=== PATIENT | female | born 1985 | race Caucasian/White ===

== ENCOUNTER 2023-03-23 10:21 | Outpatient (CLI) | payer BC, SELFPAY ==
--- NOTE | ~2023-03-23 | XR_ITS ---
EXAMINATION: XR hysterosalpingogram DATE: 03/23/2023 12:23 INDICATION: Crying to conceive TECHNIQUE: Multiple fluoroscopic images were obtained during contrast infusion into the endometrial c anal of the uterus by the primary physician. Fluoroscopy exposure time was minutes. FINDINGS: The uterine cavity demonstrates normal morphology. The fallopian tubes are normal in caliber and pat ent bilaterally. There is normal spillage of contrast into the peritoneum on both sides. IMPRESSION: 1. Normal hysterosalpingogram. Reviewed, dictated and finalized at location A.
[2023-03-23 11:28] LABS: Beta HCG Quantitative < 2.39 mIU/ML
--- NOTE | 2023-03-23 12:19 | W.PM.PROC2 ---
Procedure Note - Detailed Date of Procedure 03/23/23 Pre-op Diagnosis INFERTILITY Post-op Diagnosis Same Procedure Performed Hysterosalpingogram Surgeon Isaiah Prabhakar MD Anesthesia None Indications unexplained infertility Findings normal hysterosalpingogram Description of Procedure the patient was placed on the fluoroscopy table. A speculum was placed in the vagina. Cervix was grasped with a tenaculum. The catheter was placed the uterine cavity and the bulb was inflated. The speculum was removed with the angiocath still placed in the intrauterine cavity. Dye was then removed. The catheter. Fluoroscopic images obtained this process. Patient experienced some moderate to severe discomfort. The balloon of the catheter was deflated and the catheter was removed while the images were being obtained. The procedure was terminated. Patient tolerated the procedure well. There were no complications. Estimated Blood Loss 0 Complications No immediate complications Condition Stable Disposition Other
== END 2023-03-23 10:22 | disposition home or self-care (01) ==
PROVIDERS: Visit Provider Obstetrics & Gynecology
DX: Z31.9 Encounter for procreative management, unspecified (principal); N97.9 Female infertility, unspecified
CPT/HCPCS: 36415; 74740; 84702; Q9966

== ENCOUNTER 2025-03-05 09:33 | Outpatient (CLI) | payer OTHER, SELFPAY ==
--- NOTE | 2025-03-05 09:57 | ECG_ITS ---
Test Date: 2025-03-05 10:08:42 Measurements Intervals [place] Rate: 84 P: 69 RI: 146 QRS: 46 QRSD: 85 T: 48 QT: 337 QTc: 400 Interpretive Statements SINUS RHYTHM BASELINE ARTIFACT- I, II, III, AVR, AVLA, VF, V1-V3 NORMAL ECG No previous ECG available for comparison Electronically Signed On 03-05-2025 10:10:44 CDT by David Tompkins D.O.
--- OUTSIDE RECORDS SUMMARY | 2025-03-05 10:05 | XMS_ITS | Clinical Summary ---
Author Organization [facility] Address [address] [place] [address] Care Team Providers Care Programs Manager Name Role Phone Jules Regalado MD Primary Care Provider [phone] Source Comments [facility],non-owned Affiliates and Associated Physician Practices is amultiple site organization consisting of ambulatory clinics and hospital sitesin [place], [place], [place] and [place]. This disclosure is being madepursuant to the Care Everywhere program and may not contain all information available regarding this patient. Last updated 18.[facility] [employer] Allergies No known active allergies Medications * Be aware that medications may not be up to date on this document. Alwaysverify current medications with the patient. Medication Sig Dispensed Refills Start Date End Date Status Norgestim-Eth Estrad Triphasic (ORTHO TRI-CYCLEN, 28, PO) Activ e Fexofenadine HCl (TIFFANIE PO) Active mometasone (NASONEX) 50 MCG/ACT nasal spray [place] 1 spray into each nostril 2 times daily Active ALBUTEROL SULFATE IN Acti ve ciprofloxacin 0.3% (CILOXAN) 0.3 % ophthalmic solutionIndications:Oth er mucopurulent conjunctivitis of left eye 1 drop every 2 hours while awake x 2 days, then 1 drop every 4 hours while awake x 5 days. 1 bottles 03/30/2018 Active Family History Medical History Relation Name Comments Negative Family History Father Negative Family History Mother Relation Name Status Comments Father Mother Social History Tobacco Use Types Packs/Day Years Used Date Smoking Tobacco: Never Smokeless Tobacco: Never Tobacco Cessation:Counseling Given: No Alcohol Use Standard Drinks/Week Comments No 0 (1 standard drink = 0.6 oz pur e alcohol) Sex and Gender Information Value Date Recorded Sex Assigned at Not on file Gender Identity Not on file Sexual Orientation Not on file Last Filed Vital Signs Vital Sign Reading Time Taken Comments Blood Pressure 120/70 03/30/2018 10:23 AM CDT Pulse 111 03/30/2018 10:23 AM CDT Temperature 36.9 C (98.4 F) 03/30/2018 10:23 AM CDT Respiratory Rate 16 03/30/2018 10:23 AM CDT Oxygen Saturation 98% 03/30/2018 10:23 AM CDT Inhaled Oxygen Concentration - - Weight 72.6 kg (160 lb) 03/30/2018 10:23 AM CDT Height 162.6 cm (5' 4 ) 03/30/2018 10:23 AM CDT Body Mass Index 27.46 03/30/2018 10:23 AM CDT Plan of Treatment Health Maintenance Due Date Last Done Comments PAP SMEAR 1987 HIV SCREENING 2002 HEPATITIS C SCREENING 03/22/2005 DTAP/TDAP/TD VACCINES (1 - Tdap) 2006 HEPATITIS B VACCINE (1 of 3 - 19+ 3-dose series) 2006 COVID-19 VACCINE (1 - 2023-2 5 season) 2024 DEPRESSION SCREENING 11/26/2024 INFLUENZA VACCINE (Season Ended) 2025 ZOSTER VACCINE (1 of 2) 2037 HIB VACCINE Aged Out No longer eligi ble based on patient's age to complete this topic HPV VACCINE Aged Out No longer eligi ble based on patient's age to complete this topic MENINGOCOCCAL (Group B) VACC INE SHARED DECISION-MAKING Aged Out No longer eligibl e based on patient's age to complete this topic MENINGOCOCCAL GROUPS A/C/Y/W VACCINE Aged Out No longer eligible b ased on patient's age to complete this topic PNEUMOCOCCAL VACCINE Aged Out No long er eligible based on patient's age to complete this topic Care Teams Programs Manager Relationship Specialty Start Date End Date Jules Regalado MD PCP - General Family Medicine 02/19/17
--- OUTSIDE RECORDS SUMMARY | 2025-03-05 10:05 | XMS_ITS | Clinical Summary ---
Author Organization [facility] Care Team Providers Care Hotel Reservationist Name Role Phone Unavailable Primary Care Provider Unavailabl e Social History Tobacco Use Types Packs/Day Years Used Date Smoking Tobacco: Never Assessed Comments Unknown Sex and Gender Information Value Date Recorded Sex Assigned at Not on file Legal Sex Female 1:54 PM CENTER MEDICAL DIRECTOR Gender Identity Not on file Sexual Orientation Not on file Plan of Treatment Health Maintenance Due Date Last Done Comments Hepatitis C Virus (HCV) Screening 1987 Hepatitis B Immunization (1 of 3 - 19+ 3-dose series) 2006 Pap Smear 2008 Cervical Cancer Screening (CCS) 2017 HPV/Cotest 2017 Influenza Immunization (#1) 07/27/202407/27, 07/28/2020, 08/27/2014 SARS-COV-2 Immunization ( season) 2024 03/09/2021, 02/14/2021 Respiratory Syncytial Virus (RSV) Immunization (Adult) (1 - 1-dose 75+ series) 2062 DTaP/Tdap/Td Immunization Discontinued 10/01/2014 TdaP Immunization Completed 10/01/2014 Meningococcal Immunization (ACWY) Aged Out No longer eligible based on patient's age to complete this topic Pneumococcal Immunization Combined Aged Out No longer eligible based on patient's age to complete this topic Rotavirus Immunization Aged Out No lo nger eligible based on patient's age to complete this topic
--- OUTSIDE RECORDS SUMMARY | 2025-03-05 10:05 | XMS_ITS | Clinical Summary ---
Author Organization [facility] at the [facility] Office Building Address [address] [place] [id number] Care Team Providers Care Firer Locomotive Name Role Phone Mandy Dooley MD Primary Care Pro vider Allergies Active Allergy Reactions Criticality Noted Date Comments Cat Dander Chest tightness,Other (See comments) Medium 08/31/2022 Pollen Extracts Rash,Other (See comments) Medium 08/31 Ragweed Pollen Chest tightness,Other (See comments) Medium 08/31/2022 Medications fexofenadine HCl (KRISTINE ALLERGY ORAL) 11/26/19 10 Active mometasone (NASONEX) 50 mcg/actuation nasal spray Administer 1 spray into affected nostril(s) 2 (two) times a day 11/26/19 10 Active letrozole (FEMARA) 2.5 mg tablet Active montelukast (Singulair) 10 mg tablet 1 tab(s) orally 30 minutes before allergy shots for 30 day(s) Active EPINEPHrine (Auvi-Q) 0.3 mg/0.3 mL auto-injection syringe as directed intramuscularly once for 30 day(s) Active metFORMIN XR (GLUCOPHAGE XR) 500 mg 24 hr tabletIndications :PCOS (polycystic ovarian syndrome) TAKE 2 TABLETS BY MOUTH EVERY MORNING BEFORE BREAKFAST AND TAKE 1 TABLET BEFORE DINNER 270 tablet 3 08/27/20 23 Active albuterol HFA (ProAir HFA) 90 mcg/actuation inhalerIndication s:Mild intermittent asthma without complication Inhale 2 puffs every 4 (four) hours as needed for wheezing or shortness of breath 8.5 g 1 01/29/20 24 Active doxycycline hyclate 100 mg capsule 10/15/20 24 Active hydrocortisone 2.5 % ointment APPLY TOPICALLY TO THE AFFECTED AREA OF FACE AND NECK TWICE DAILY FOR 2 WEEKS 10/15/20 24 Active ondansetron ODT (ZOFRAN-ODT) 4 mg disintegrating tablet DISSOLVE 1 TABLET ON THE TONGUE EVERY 6 HOURS 09/24/20 24 Active olopatadine (Pataday Twice Daily Relief) 0.1 % ophthalmic solution every 12 hours Activ e metroNIDAZOLE (METROGEL) 1 % gel APPLY TOPICALLY TO FACE DAILY 11/10/20 24 Active SEMAGLUTIDE SUBQ Inject 10 Units under the skin Active busPIRone (BUSPAR) 15 mg tabletIndications :SYLVIA (generalized anxiety disorder) Take 1 tablet (15 mg total) by mouth 3 (three) times a day 270 tablet 2 02/28/20 25 2025 Active busPIRone (BUSPAR) 15 mg tabletIndications :SYLVIA (generalized anxiety disorder) Take 1 tablet (15 mg total) by mouth 3 (three) times a day 270 tablet 01/16/20 25 2024 Disconti nued(Reo rder) Active Problems Problem Noted Date Diagnosed Date Mild intermittent asthma without complication Assessment & Plan (11/17/2024 9:32 AM COMMUNICABLE DISEASE SPECIALIST): controlled Continue albuterol as needed Assessment & Plan (01/29/2024 8:32 AM COMMUNICABLE DISEASE SPECIALIST): Stable Continue albuterol as needed Assessment & Plan (08/27/2023 10:12 AM CDT): Stable Continue albuterol as needed Environmental allergies 08/27/2023 Assessment & Plan (11/17/2024 9:32 AM COMMUNICABLE DISEASE SPECIALIST): Following with horse race starter Assessment & Plan (01/29/2024 8:32 AM COMMUNICABLE DISEASE SPECIALIST): Stable Following with horse race starter On kristine & nasonex Assessment & Plan (08/27/2023 10:18 AM CDT): Stable Following with horse race starter On kristine & nasonex Vaginal itching 07/07/2023 Assessment & Plan (07/07/2023 6:26 PM CDT): PO diflucan 150 mg once a week x 3 weeks Nystatin powder as prescribed Clean area clean, dry, avoid moisture accumulation Yeast culture PCOS (polycystic ovarian syndrome) 04/11/2021 Assessment & Plan (11/17/2024 9:45 AM COMMUNICABLE DISEASE SPECIALIST): Following with gynecology On wegovy Assessment & Plan (01/29/2024 8:39 AM COMMUNICABLE DISEASE SPECIALIST): Following with gynecology Continue metformin, adjust as needed to avoid diarrhea Assessment & Plan (08/27/2023 10:19 AM CDT): Following with gynecology On metformin, could decrease to 500mg twice a day if persistent side effects Assessment & Plan (04/11/2021 5:33 PM CDT): Following with gynecology, On clomid & metformin Annual physical exam 07/06/2020 Assessment & Plan (11/17/2024 9:44 AM COMMUNICABLE DISEASE SPECIALIST): Reviewed PMH & Phq reviewed Reviewed medications and supplements HCM: orders placed as needed Assessment & Plan (08/27/2023 10:02 AM CDT): Reviewed PMH & Phq reviewed Reviewed medications and supplements HCM: orders placed as needed Assessment & Plan (08/31/2022 4:31 PM CDT): Former smoker PAP: UTD, follows with gynecology at [facility] BP wnl Body mass index is 30.59 kg/m . Discussed diet and exercise Feels safe at home Discussed skin cancer prevention and screening Flu vaccine today, otherwise UTD Assessment & Plan (08/12/2021 10:53 AM CDT): Former smoker PAP: UTD, follows with gynecology at [facility] BP wnl PHQ Screening PHQ-2 Total Score (If total score is 3 or more points, staff should administer the PHQ-9): 0 Body mass index is 28.35 kg/m . Discussed diet and exercise Feels safe at home Discussed skin cancer prevention and screening Flu vaccine today, otherwise UTD Assessment & Plan (07/06/2020 4:01 PM CDT): Check labs prior to next visit SYLVIA (generalized anxiety disorder) Assessment & Plan (02/27/2025 11:45 AM CDT): GAD7: 16>8, improved Continue buspar 15mg three times a day Assessment & Plan (01/16/2025 9:33 AM COMMUNICABLE DISEASE SPECIALIST): GAD7: 16, uncontrolled Increase buspar to 15mg three times a day Assessment & Plan (11/17/2024 9:45 AM COMMUNICABLE DISEASE SPECIALIST): GAD7: 9, uncontrolled Increase buspar to 20mg twice a day Assessment & Plan (01/29/2024 8:30 AM COMMUNICABLE DISEASE SPECIALIST): Improved Continue buspar 15mg twice a day Assessment & Plan (08/27/2023 10:21 AM CDT): Uncontrolled Increase buspar to 15mg twice a day Continue regular exercise Assessment & Plan (12/06/2022 2:16 PM COMMUNICABLE DISEASE SPECIALIST): Uncontrolled with recent return to the office Reasonable accomodation paperwork filled out 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 Continue 10mg buspar twice a day Assessment & Plan (08/12/2021 10:55 AM CDT): Doing well on buspar 10mg twice a day Assessment & Plan (04/11/2021 5:32 PM CDT): GAD7:6 today, stable Continue buspar 10mg TWICE A DAY Paperwork filled out for work Assessment & Plan (08/04/2020 8:54 AM CDT): GAD7:5 today, improved from 17 previously Trial increasing buspar to 10mg BID, if not well tolerated let me know and we can try 7.5mg Assessment & Plan (07/06/2020 3:57 PM CDT): GAD7: 17 today Restart buspar Resolved Problems Problem Noted Date Diagnosed Date Resolved Date Acute cough 07/07/2023 08/27/2023 Assessment & Plan (07/07/2023 6:27 PM CDT): Ongoing VSS, NAD, speaking in full sentences, no use accessory abdominal muscles, lungs CTAB Hx of asthma, c/o chest tightness, ongoing cough x 1 month with acute improvement but recent worsening again Prednisone 40 mg once a day x 5 days Levofloxacin po 500 mg daily x 5 days Ordered chest x-ray given duration of symptoms Albuterol inhaler as needed for SOB, wheezing, chest tightness Tessalon pearls (still has Rx) cough suppressant as needed Mucinex otc as cough expectorant x 7 days Zyrtec or claritin otc for drainage x 7 days Nasal saline spray x 7 days Flonase nasal spray x 7 days ER for worsening symptoms or persistent symptoms Acute bacterial conjunctivitis of right eye 07/07/2023 08/27/2023 Assessment & Plan (07/07/2023 6:22 PM CDT): No visual impairment, EOM intact and non painful, R conjunctiva injected Contac lens wearer Recently completed ofloxacin Ciprofloxacin ophthalmic solution both eyes every 4 hours x 7 days Contagious until on antibiotic drops for 24 hours Wash hands frequently and avoid touching/rubbing eyes Discard eye makeup Discard contacts and open a new pair when eye(s) return to normal Cool compresses as needed for irritation If eye(s) are not improving or worsening, or if you develop vision changes or eye pain over the next 24-48 hours, go see an eye doctor IMMEDIATELY Class 1 obesity due to exces s calories without serious comorbidity with body mass index (BMI) of 31.0 to 31.9 in adult 07/07/2020 Assessment & Plan (08/03/2020 8:58 AM CDT): BMI Follow-up includes: nutrition counseling and exercise counseling. Assessment & Plan (07/07/2020 1:28 PM CDT): BMI Follow-up includes: nutrition counseling and exercise counseling. Encounters Date Type Department Care Team Description 02/27/2025 11:30 AM CDT Office Visit [facility] at [address] [phone] Mandy Dooley MD SYLVIA (generalized anxiety disorder) (Primary Dx) 01/16/2025 9:15 AM COMMUNICABLE DISEASE SPECIALIST Office Visit [facility] at [address] [phone] Mandy Dooley MD SYLVIA (generalized anxiety disorder) (Primary Dx) from Last 3 Months Immunizations Immunization Administration Dates Next Due Influenza, Quadrivalent, Spl it, Preservative Free, Intramuscular 08/27/2023,08/31/2022,08/12/2021,07/28 Influenza, Trivalent, Preser vative Free, Intramuscular 10/16/2024,08/27/2014 Pneumococcal Conjugate Pcv20 11/17/2024 Tdap 11/17/2024,10/01/2014 Surgical History Surgery Date Site/Laterality Comments SECTION APPENDECTOMY Medical History Medical History Date Comments Anxiety Shingles Asthma Migraines Family History Medical History Relation Name Comments COPD Father Lucien Bennettlbutt Cancer Father Lucien Hurlbutt Throat cancer Father Lucien Bennettlbutt Heart attack Maternal Grandfather Gunnar Casas COPD Maternal Grandmother Cristiana Clemons Arthritis Mother Rea Clemons Obesity Mother Rea Clemons Relation Name Status Comments Father Lucien Lockwoodbutt Alive Maternal Grandfather Gunnar Casas Maternal Grandmother Cristiana Clemons Mother Rea Clemons Alive Social History Tobacco Use Types Packs/Day Years Used Date Smoking Tobacco: Former Cigarettes Tobacco Cessation:Counseling Given: Not Answered Alcohol Use Standard Drinks/Week Comments Yes 2 (1 standard drink = 0.6 oz pur e alcohol) AUDIT-C Answer Date Recorded Q1: How often do you have a drink containing alc ohol? Monthly or less 11/17/2024 Average Number of Drinks Not on file 024 Frequency of Binge Drinking Not on file 10/27 PHQ-2 Answer Date Recorded PHQ-2 Total Score (If total score is 3 or more points, staff should administer the PHQ-9) 2 02/27/2025 PHQ-9 Answer Date Recorded PHQ-9 Total Score 5 02/27/2025 Comments No Sex and Gender Information Value Date Recorded Sex Assigned at Not on file Legal Sex Female 7:44 PM COMMUNICABLE DISEASE SPECIALIST Gender Identity Not on file Sexual Orientation Not on file Obstetrics History Para Term AB IAB SAB Ectopic Multiple Livin g Live Births 2 1 Date Outcome GA Total Labor Labor//3rd Weight Sex Type Anes PTL Olena A1 A5 Name Clin Para Last Filed Vital Signs Vital Sign Reading Time Taken Comments Blood Pressure 116/64 02/27/2025 11:35 AM CDT Pulse 80 02/27/2025 11:35 AM CDT Temperature 36.3 C (97.4 F) 02/27/2025 11:35 AM CDT Respiratory Rate 18 02/27/2025 11:35 AM CDT Oxygen Saturation 99% 02/27/2025 11:35 AM CDT Inhaled Oxygen Concentration - - Weight 63 kg (138 lb 14.4 oz) 02/27/2025 11:35 A M CDT Height 162.6 cm (5' 4 ) 02/27/2025 11:35 AM CDT Body Mass Index 23.84 02/27/2025 11:35 AM CDT Plan of Treatment Health Maintenance Due Date Last Done Comments Hepatitis C Screening 1987 Hepatitis B Screening 2005 Zoster Vaccine (1 of 2) 2006 Covid-19 Vaccine (3 - Pfizer risk series) 04/06/2021 03/09/2021, 02/14/2021 Regular Well Visit/Exam 18-64 11/17/2025 11/17/2024, 08/27/2023, 08/31/2022, Additional history exists Depression Screening 02/27/2026 02/27/2025, 02/27/2025, 11/17/2024, Additional history exists Cervical Cancer Screening 04/06/2026 04/06/2023 DTaP/Tdap/Td Vaccine (3 - Td or Tdap) 11/17/2034 11/17/2024, 10/01/2014 Influenza Vaccine Completed 10/16/2024, , 08/31/2022, Additional history exists Pneumococcal vaccine <65 Completed 11/17/2024 HPV Vaccines Aged Out No longer eligi ble based on patient's age to complete this topic Varicella Vaccines Discontinued Insurance [employer] Care Teams Firer Locomotive Relationship Specialty Start Date End Date Mandy Dooley MD PCP - General Family Medicine 07/02/20
--- OUTSIDE RECORDS SUMMARY | 2025-03-05 10:05 | XMS_ITS | Clinical Summary ---
Author Organization [facility] Address [address] [place] [id number] Care Team Providers Care Special Education Case Manager Name Role Phone Shaquille Regalado MD Primary Care Provider Unav ailable Social History Tobacco Use Types Packs/Day Years Used Date Smoking Tobacco: Never Assessed Comments Unknown Sex and Gender Information Value Date Recorded Sex Assigned at Not on file Legal Sex Female 8:24 PM CDT Gender Identity Not on file Sexual Orientation Not on file Plan of Treatment Health Maintenance Due Date Last Done Comments Cervical Cancer Screening Pa p Smear (Age 30 to 64) Every 3 Years 1987 Annual Physical 1990 Hepatitis C 2005 DTaP, Tdap and Td Vaccines ( 1 - Tdap) 2006 Hepatitis B Vaccines (1 of 3 - 19+ 3-dose series) 2006 Cervical Cancer Screening Pa p with HPV Testing (Age 30 to 64) Every 5 Years 2017 Cervical Cancer Screening with HPV 2017 COVID-19 Vaccine (2023-2 5 season) 2024 HPV Vaccines Aged Out No longer eligi ble based on patient's age to complete this topic Meningococcal B Vaccine Aged Out No l onger eligible based on patient's age to complete this topic Meningococcal Vaccine Aged Out No sherrie veronica eligible based on patient's age to complete this topic Pneumococcal Vaccine: Pediat rics (0 to 5 Years) and At-Risk Patients (6 to 64 Years) Aged Out No longer eligible b ased on patient's age to complete this topic RSV Immunizations Under 20 Months Aged Out No longer eligible based on patient's age to complete this topic Care Teams Special Education Case Manager Relationship Specialty Start Date End Date Shaquille Regalado MD PCP - General 01/07/17
--- OUTSIDE RECORDS SUMMARY | 2025-03-05 10:05 | XMS_ITS ---
Author Organization [facility] Address [address] [place] [address] Care Team Providers Care Doubler Helper Name Role Phone Mandy Dooley Primary Care Provider Mable Dick Unavailable [phone] Blayne Garcia [phone] REASON FOR VISIT SCIT - Traditional Schedule Allergy Immunotherapy Encounters Encounter Location Date Provider Diagnosis [facility] [address] [place] [address] 01/26/2025 Blayne Garcia Allergic rhinitis due to pollen J30.1 ; Other allergic rhinitis J30.89 ; Allergic rhinitis due to animal (cat) (dog) hair and dander J30.81 and Other chronic allergic conjunctivitis H10.45 Assessments Encounter Date Diagnosis (ICD Code) Assessment Notes Treatment Notes Treatment Clinical Notes Section Notes 01/26/2025 Allergic rhinitis due to pollen (ICD-10 - J30.1) 01/26/2025 Other allergic rhinitis (ICD-10 - J30.89) 01/26/2025 Allergic rhinitis due to animal (cat) (dog) hair and dander (ICD-10 - J30.81) 01/26/2025 Other chronic allergic conjunctivitis (ICD-10 - H10.45) Plan Of Treatment Next Appt Details Follow Up: 1 Week, Reason: Provider Name:Mable Scott , 03/16/2025 09:30:00 AM, [address] [place], [address], Provider Name:Blayne Garcia , 03/26/2025 04:40:00 PM, [address] [place], [address], Progress Notes * Regine DOHERTYDOB: [birth year] (39 yo F)Acc No.[id number]:01/26/2025 SCIT-Aeroallergen Patient: Regine SONI Provider: Esau Garcia MD :1985 A ge:39 Y S ex:Female Date:01/26/2025 Address:[address] [place], [place] [id number] Pcp:Mandy Dooley Subjective: * Chief Complaints: * 1 . SCIT - Traditional Schedule Allergy Immunotherapy. * HPI: * Introduction: The patient is here for scheduled immunotherapy. Please see the attached specialty form regarding the specifics of the administration of these vaccines. As per our protocol, they must undergo a screening health questionnaire (medication changes, reaction(s) to last immunotherapy dose(s), current health status, ACT (if appropriate), self-injectable epinephrine on patient(?) and peak flow (if appropriate)). Also, the patient must wait in our office for 30 minutes after receiving the vaccine(s). Furthermore, every patient must have an epinephrine pen (self-injectable) with them at the time of administration--and carry if for the following 1.5 hours after they leave our office. The patient must also have taken their antihistamine the day of the injection, preferably 2 hours prior. The consent form for SCIT (subcutaneous immunotherapy) is on file. * Medical History: Objective: * Vitals: Assessment: * Assessment: 1. A llergic rhinitis due to pollen - J30.1 (Primary) 2 . O ther allergic rhinitis - J30.89 3 . A llergic rhinitis due to animal (cat) (dog) hair and dander - J30.81 4 . O ther chronic allergic conjunctivitis - H10.45 Plan: * Treatment: * Follow Up: 1 Week * Billing Information: * Visit Code: * Procedure Codes: 08996 IMMUNOTHERAPY INJECTIONS. * Electronic signature of Mike Garcia MD, FAAAAI on 03/05/2025 at 10:04 AM CDT Sign off status: Pending * Provider: Esau Garcia MD Date: 0 01/26/2025 Generated for Jas lara/Lyle/Tammie on: 0 03/05/2025 10:04 AM CDT History and Physical Notes * HPI (History of Present Illness) Category Sub-Category Detail Notes Category Not es *Introduction The patient is here for scheduled immunotherapy. Please see the attached specialty form regarding the specifics of the administration of these vaccines. As per our protocol, they must undergo a screening health questionnaire (medication changes, reaction(s) to last immunotherapy dose(s), current health status, ACT (if appropriate), self-injectable epinephrine on patient(?) and peak flow (if appropriate)). Also, the patient must wait in our office for 30 minutes after receiving the vaccine(s). Furthermore, every patient must have an epinephrine pen (self-injectable) with them at the time of administration--and carry if for the following 1.5 hours after they leave our office. The patient must also have taken their antihistamine the day of the injection, preferably 2 hours prior. The consent form for SCIT (subcutaneous immunotherapy) is on file.
--- OUTSIDE RECORDS SUMMARY | 2025-03-05 10:05 | XMS_ITS | Data Portability ---
Author Organization [facility] Address [address] [place] [address] [place] [address] Care Team Providers Care Performance Improvement Coordinator Name Role Phone ALLISON SWEET Primary Care Provider Assessment No assessment recorded. Plan of Treatment Reminders Order Date Submit Date Provider Last Modified By Organization Details Last Modified Time Details Appointments Robotic [facility] 2024 07:30A Carlos PRABHAKAR MD Not available Not available Not available SURG POST OP 2024 10:00A Carlos PRABHAKAR MD Not available Not available Not available Lab None recorded. Referral None recorded. Procedures None recorded. Surgeries None recorded. Imaging US, pelvis 2024 025 [email or web address] [place], [address], [place], [address], 12/24/2024 08:27:19 US, transvagi nal 2024 025 [email or web address] [place], [address], [place], [address], 12/24/2024 08:27:19 Medication Orders ondansetr on 4 mg disintegr ating tablet 2023 [id number] [address], [place], [id number], 08/29/2024 10:44:38 Patient TargetsNo targets recorded. Patient InstructionsNo instructions recorded. Reason for Referral None Reported. Results Created Date Observation Date Name Description Value Unit Range Abnormal Flag Note LastModifiedBy Organization Detail LastModifiedTime 12/22/19 25 12/22/2024 US, pelvi s No observ ation record ed. [email or web address] [place] [address], [place], [address], 12/22/2024 17:59:18 12/22/19 25 12/22/2024 US, trans vagin al No observ ation record ed. [email or web address] [place] [address], [place], [address], 12/22/2024 17:59:26 12/22/19 25 12/22/2024 US, pelvi s No observ ation record ed. [email or web address] [address], [place], [address], 12/26/2024 11:07:19 01/06/20 25 10/16/2024 CT, abdom en + pelvi s, w/ contr ast No observ ation record ed. [email or web address] [facility] [address] [address], [place], [address], 01/06/2025 14:36:57 Result Notes None recorded. Problems Name Problem SNOMED Code Status Onset Date Resolution Date Notes Provider Name and Address Organization Details Recorded Time Placenta previa with hemorrha ge - not delivere d [id number] Completed 201301/11/2021 Hemorrha ge from placenta previa, antepart um;Pract ice ID: 0001 Shefali howard, [facility] 13:14:01 Primigra katarzyna [id number] Completed 201301/11/2021 Supervis ion of normal first pregnanc y;Practi ce ID: 0001 [facility] 13:14:16 Routine antenata l care Completed 201301/11/2021 Supervis ion of other normal pregnanc y;Practi ce ID: [address] null, [facility] 13:14:21 Placenta previa without hemorrha ge - not delivere d [id number] Completed 201301/11/2021 Placenta previa without hemorrha ge, antepart um;Pract ice ID: 0001 Shefali Ariana howard, [facility] 13:14:05 Placenta previa without hemorrha ge - delivere d [id number] Completed 201301/11/2021 Placenta previa without hemorrha ge, with delivery ;Practic e ID: 0001 Shefali Ariana howard, [facility] 13:14:03 Dyspareu kavon [id number] Completed 201101/11/2021 Dyspareu kavon;Prac xu ID: 0001 Shefali howard, [facility] 13:13:39 Irregula r periods [id number] Completed 201301/11/2021 Irregula r menstrua l cycle;Pr actice ID: 0001 Shefali howard, [facility] 13:13:54 Pregnanc y test negative [id number] Completed 201301/11/2021 Negative Pregnanc y Test;Pra ctice ID: 0001 Shefali Ariana howard, [facility] 13:14:11 Speciali zed medical examinat ion Completed 201301/11/2021 Routine gynecolo gical examinat ion;Prac xu ID: 0001 Shefali howard, [facility] 13:14:32 Screenin g for malignan t neoplasm of cervix Completed 201301/11/2021 Pap Smear;Pr actice ID: 0001 Shefali howard, [facility] 13:14:23 Examinat ion for accident Completed 201301/11/2021 Observat ion followin g other accident ;Practic e ID: [address] null, [facility] 13:13:41 Ultrason ography Completed 201301/11/2021 Antenata l screenin g for malforma tion using ultrason ics;Prac xu ID: 0001 Shefali Alne lee, [facility] 13:14:34 Antenata l screenin g Completed 201301/11/2021 Antenata l screenin g for malforma tion using ultrason ics;Prac xu ID: [address] null, [facility] 13:13:30 Congenit al malforma tion [id number] Completed 201301/11/2021 Antenata l screenin g for malforma tion using ultrason ics;Prac xu ID: [address] lee, [facility] 13:13:[address] Concept Completed 201701/11/2021 Encntr for make up operator helper exam (general ) (routine ) w/o abn findings ;Recorde d Elsewher e: No Locat ion: [facility] S ource: [employer] susan: N Heenati ce ID: 0001 Jan lable Time: 11:30:00 AM Shefali howard [facility] 1 13:14:30 Postoper ative follow-u p visit Completed 201301/11/2021 Post operativ e follow-u p;Record ed Elsewher e: No Locat ion: [facility] S ource: [employer] susan: N Heenati ce ID: 0001 Jan lable Time: 10:30:00 AM Shefali howard [facility] 1 13:14:07 Uses IUD (intraut erine device) contrace ption [id number] Completed 201401/11/2021 Surveill ance of intraute rine contrace ptive device;R ecorded Elsewher e: No Locat ion: [facility] S ource: [employer] susan: N Heenati ce ID: 0001 Jan lable Time: 10:15:00 AM Shefali howard [facility] 1 13:13:57 Insertio n of intraute rine contrace ptive device Completed 201401/11/2021 INSERTIO N OF IUD;Anderson rded Elsewher e: No Locat ion: [facility] S ource: [employer] susan: N Heenati ce ID: 0001 Jan lable Time: 02:00:00 PM Shefali howard [facility] 1 13:13:49 Disorder of hair AND/OR hair follicle Completed 201301/11/2021 Follicul itis;Rec orded Elsewher e: No Locat ion: [facility] S ource: [employer] susan: N Heenati ce ID: 0001 Jan lable Time: 11:00:00 AM Shefali howard [facility] 1 13:13:37 Pregnanc y test positive [id number] Completed 201301/11/2021 Pregnanc y examinat ion or test, positive result;R ecorded Elsewher e: No Locat ion: [facility] N Heenati ce ID: 0001 Jan lable Time: 11:00:00 AM Shefali howard [facility] 13:14:14 Female genital organ symptoms [id number] Completed 201101/11/2021 Unspecif ied symptom associat ed with female genital organs;P ractice ID: 0001 Shefali howard [facility] 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 13:14:28 Postpart um care Completed 201301/11/2021 Postpart um follow-u p;Record ed Elsewher e: No [facility]at [facility]: [facility]: N Heenati ce ID: 0001 Jan lable Time: 11:00:[address] [facility], [facility] 13:14:10 Body mass index 30+ - obesity 591778714 Completed 201801/11/2021 Body mass index (BMI) 30.0-30. 9, adult;Re corded Elsewher e: No Locat ion: [facility] S [facility]: [facility]: N Heenati ce ID: 0001 Jan lable Time: 08:30:00 AM Shefali howard [facility] 13:13:33 Placenta previa with hemorrha ge [id number] Completed 201301/11/2021 Partial placenta previa;R ecorded Elsewher e: No Locat ion: [facility] S ource: [facility] susan: N Heenati ce ID: 0001 Jan lable Time: 02:00:00 PM Shefali howard [facility] 13:13:59 Removal of intraute rine device Completed 201501/11/2021 REMOVAL OF IUD;Anderson rded Elsewher e: No Locat ion: [facility] S ource: [facility] [employer] susan: N Heenati ce ID: 0001 Jan lable Time: 03:45:00 PM Shefali howard [facility] 13:14:19 Single live [id number] Completed 201301/11/2021 Mother with single liveborn ;Practic e ID: 0001 Shefali howard [facility] 13:14:25 Problem Notes None recorded. Procedures Surgical History Date Name Laterality Status Provider Name and Address Organization Details Recorded Time 2023 intrauterine artificial insemination completed Shefali Lane [facility] 03/05/2024 13:46:24 2023 intrauterine artificial insemination completed Shefali Lane [facility] 02/08/2024 14:00:27 2022 Date of Last Pap Smear completed Callie Wharton [facility] 05/01/2024 14:39:27 [address] [facility] 04/05/2023 18:15:53 2013 Caesarean Section completed Dana Gilbert [facility] 01/03/2025 12:33:12 2013 delivery completed Norma Hernandez [facility] 09/24/2020 10:39:44 [address] [facility] 01/11/2021 13:16:10 Imaging Results Imaging Date Name Status LastModified by Organization Details LastModified Time 12/22/2024 US, pelvis completed [email or web address] [address], [place], [address], 12/22/2024 17:59:18 12/22/2024 US, transvaginal completed [email or web address] Evaristo caraballo [address], [place], [address], 12/22/2024 17:59:26 12/22/2024 US, pelvis completed [email or web address] [address], [place], [address], 12/26/2024 11:07:19 10/16/2024 CT, abdomen + pelvis, w/ contrast completed [email or web address] [facility] [address] [address], [place], [address], 01/06/2025 14:36:57 Procedure Notes None recorded. Medical Equipment None Reported. Allergies Allergen ID Allergen Name Allergen Category Reaction Reaction Severity Criticality Documentation Date Start Date Code Code System Note Provider Name and Address Organization Details Recorded Time 2543 cat dander environme nt Not available Not available Not available 09/24/2020 67370 LENOJennifer Norma howard [facility] 0 10:39:07 2544 POLLEN EXTRACTS environme nt,medica tion Not available Not available Not available 09/24/2020 08577 6 RxNorm Norma howard, [facility] 0 10:39:13 2545 ragweed pollen environme nt Not available Not available Not available 09/24/2020 14588 BLANCA Norma howard [facility] 0 10:39:20 Medications Name Sig Start Date Stop Date Status Note LastModified by Organization Details LastModified Time Prescript ion - Prior Authoriza tion Request 06/09 completed Not Available Not Available Not Available tretinoin 0.045%, hydroquin one 6%, fluocinol one 0.01% topical gel Apply at bedtime to discolor ed skin on the face for 12 weeks maximum. 08/29 completed Not Available Not Available Not Available multivita min tablet take 1 tablet by oral route every day with food 03/30 completed Prescrib ed Elsewher e: No Locat ion: [facility] M odify By: [email or web address] trick En counter DateTime : 04/08/20 12 12:30:00 PM Not Available Not Available Not Available Mirena 21 mcg/24 hr (up to 8 years) 52 mg intrauter ine device 04/14 completed Prescrib ed Elsewher e: Yes [facility] odify By: kmkirkpa trick En counter DateTime : 12/17/19 15 02:00:00 PM Not Available Not Available Not Available buspirone 5 mg tablet 01/11 completed Not Available Not Available Not Available metformin 500 mg tablet TAKE 2 TABLETS BY MOUTH EVERY MORNING AND 1 TABLET EVERY EVENING active Not Available Not Available No t Available doxycycli ne hyclate 100 mg capsule TAKE 1 CAPSULE BY MOUTH TWICE DAILY WITH FOOD AND WATER 12/21 completed Not Available Not Available Not Available Rhinocort Aqua 32 mcg/actua tion nasal spray spray 1 spray by intranas al route every day in each nostril 04/14 completed Prescrib ed Elsewher e: Yes Loca tion: [facility] odify By: kmkirkpa trick En counter DateTime : 03/30/20 14 11:00:00 AM Not Available Not Available Not Available ofloxacin 0.3 % eye drops INSTILL 3 DROPS TO EACH EYE TWICE DAILY FOR 7 DAYS 02/07 completed Not Available Not Available Not Available fluconazo le 150 mg tablet 02/07 completed Not Available Not Available Not Available benzonata te 200 mg capsule 02/07 completed Not Available Not Available Not Available clomiphen e citrate 50 mg tablet TAKE 1 TABLET BY MOUTH DAILY ON DAYS 5-9 04/06 completed Not Available Not Available Not Available Nystop 100,000 unit/gram topical powder APPLY TOPICALL Y TWICE DAILY FOR 14 DAYS 02/07 completed Not Available Not Available Not Available prednison e 20 mg tablet TAKE 2 TABLETS BY MOUTH EVERY DAY FOR 5 DAYS 02/07 completed Not Available Not Available Not Available Pregnyl 10,000 unit intramusc ular solution 08/29 completed Not Available Not Available Not Available Aurea 60 mg tablet take 1 tablet by oral route 2 times every day active Prescrib ed Elsewher e: Yes Loca tion: [facility] odify By: cmedical Encount er DateTime : 11/11/20 14 11:00:00 AM Not Available Not Available Not Available Zyrtec 10 mg tablet take 1 tablet by oral route every day 11/11 completed Prescrib ed Elsewher e: Yes Loca tion: Evaristo caraballo [facility] odify By: cmedical Encount er DateTime : 03/30/20 14 11:00:00 AM Not Available Not Available Not Available ciproflox acin 0.3 % eye drops INSTILL 1 DROP IN BOTH EYES EVERY 4 HOURS WHILE AWAKE FOR 7 DAYS 02/07 completed Not Available Not Available Not Available buspirone 10 mg tablet Take 1 tablet twice a day by oral route. 02/07 completed Not Available Not Available Not Available monteluka st 10 mg tablet active Not Available Not Available Not Available Transderm -Scop 1 mg over 3 days transderm al patch apply 1 patch by transder mal route to the hairless area behind 1 ear at least 4 hr before effect is required ; reapply every 3 days as needed 10/19 completed Prescrib ed Elsewher e: No [facility] By: kmkimary lou trick En counter DateTime : 10/12/20 14 02:30:00 PM Not Available Not Available Not Available Nasonex 50 mcg/actua tion [place] spray 2 spray by intranas al route every day in each nostril 03/30 completed Prescrib ed Elsewher e: Yes [facility] odify By: kmkirkpwinter trick En counter DateTime : 12/12/19 14 02:30:00 PM Not Available Not Available Not Available levofloxa gladis 500 mg tablet 02/07 completed Not Available Not Available Not Available letrozole 2.5 mg tablet TAKE 3 TABLETS BY MOUTH EVERY DAY FOR 5 DAYS 05/01 completed Not Available Not Available Not Available albuterol sulfate HFA 90 mcg/actua tion aerosol inhaler INHALE 2 PUFFS BY MOUTH EVERY 4 HOURS NEEDED FOR WHEEZING OR SHORTNES S OF BREATH active Not Available Not Available No t Available Vitamin D2 1,250 mcg (50,000 unit) capsule take 1 capsule by oral route every week 04/14 completed Prescrib ed Elsewher e: No [facility] od[facility] By: kmkireidkpwinter trick En counter DateTime : 08/17/20 14 02:07:03 PM Not Available Not Available Not Available norethind valerie (contrace ptive) 0.35 mg tablet take 1 tablet by oral route every day 01/08 completed Prescrib ed Elsewher e: No Locat ion: Evaristo caraballo [facility] odify By: kmkirkpa trick En counter DateTime : 11/11/20 14 11:00:00 AM Not Available Not Available Not Available hydrocort isone 2.5 % topical ointment APPLY TOPICALL Y TO THE AFFECTED AREA OF FACE AND NECK TWICE DAILY FOR 2 WEEKS 12/21 completed Not Available Not Available Not Available ondansetr on 4 mg disintegr ating tablet Place 1 tablet every 6 hours by translin gual route. 2023 active Not Available Not Available Not Avai lable metformin ER 500 mg tablet,ex tended release 24 hr TAKE 2 TABLETS BY MOUTH EVERY MORNING BEFORE BREAKFAS T AND TAKE 1 TABLET BEFORE DINNER 08/29 completed Not Available Not Available Not Available amoxicill in 875 mg-potass ium clavulana te 125 mg tablet TAKE 1 TABLET BY MOUTH EVERY 12 HOURS FOR 7 DAYS 02/07 completed Not Available Not Available Not Available buspirone 15 mg tablet active Not Available Not Available Not Available NuvaRing 0.12 mg-0.015 mg/24 hr vaginal insert 1 vaginal ring by vaginal route every month leave in place for 3 weeks, remove for 1 week 12/12 completed Prescrib ed Elsewher e: No Locat ion: [facility] odify By: kmkirkpa trick En counter DateTime : 04/08/20 12 12:30:00 PM Not Available Not Available Not Available Aurea-D 24 Hour 180 mg-240 mg tablet,ex tended release take 1 tablet by oral route every day on an empty stomach with a glass of water 03/30 completed Prescrib ed Elsewher e: No Locat ion: Evaristo caraballo [facility] odify By: kmkirkpa trick En counter DateTime : 04/08/20 12 12:30:00 PM Not Available Not Available Not Available Aurea Allergy 01/11 completed Not Available Not Available Not Available Blisovi Fe 1.5/30 (28) 1.5 mg-30 mcg (21)/75 mg (7) tablet TAKE 1 TABLET BY ORAL ROUTE EVERY DAY 01/11 completed Prescrib ed Elsewher e: No Locat ion: [facility] odify By: donnell [email or web address] DateTime : 04/11/20 19 08:30:00 AM Not Available Not Available Not Available One Daily 27 mg iron-800 mcg tablet take 1 tablet by oral route every day 04/14 completed Prescrib ed Elsewher e: Yes Loca tion: [facility] odify By: kmkirkpa trick En counter DateTime : 03/30/20 14 11:00:00 AM Not Available Not Available Not Available Ozempic 0.25 mg or 0.5 mg (2 mg/1.5 mL) subcutane ous pen injector 2023 active Ok Not Available Not Available Not Avai lable Wegovy 0.25 mg/0.5 mL subcutane ous pen injector ADMINIST ER 0.25 MG UNDER THE SKIN EVERY WEEK 08/29 completed Not Available Not Available Not Available Wegovy 0.5 mg/0.5 mL subcutane ous pen injector ADMINIST ER 0.5 MG UNDER THE SKIN EVERY WEEK 03/03 completed Not Available Not Available Not Available Ozempic 0.25 mg or 0.5 mg (2 mg/3 mL) subcutane ous pen injector active Not Available Not Available Not Available Vitals Date Recorded Body height Body mass index (BMI) Body weight Systolic blood pressure Diastolic blood pressure Provider Name and Address Organization Details Last Updated DateTime 05/30/2024 162.56 cm 28.6 kg/m2 95571.49 g 122 mm[Hg] 76 mm[Hg] Callie Wharton [place] [facility] 4 10:49:24 Date Recorded Body height Body mass index (BMI) Body weight Systolic blood pressure Diastolic blood pressure Provider Name and Address Organization Details Last Updated DateTime 08/29/2024 162.56 cm 26.3 kg/m2 12589.63 g 104 mm[Hg] 69 mm[Hg] Shefali Lane [facility] 4 10:38:28 Date Recorded Body height Body mass index (BMI) Body weight Systolic blood pressure Diastolic blood pressure Provider Name and Address Organization Details Last Updated DateTime 01/03/2025 162.56 cm 25.2 kg/m2 14368.08 g 101 mm[Hg] 71 mm[Hg] Dana Gilbert [facility] 5 12:36:04 Date Recorded Body height Body mass index (BMI) Body weight Systolic blood pressure Diastolic blood pressure Provider Name and Address Organization Details Last Updated DateTime 03/03/2025 162.56 cm 24.2 kg/m2 46011.52 g 108 mm[Hg] 72 mm[Hg] Callie Dio [facility] 5 10:49:39 Social History Question Answer Notes LastModified by Organizat ion Details LastModified Time Tobacco Smoking Status Former Smoker Reji howard, [facility] 04/06/2023 11:01:25 Do You Have An Advance Directive? No [email or web address] Information not available 08/30/2021 What Is Your Level Of Alcohol Consumption? Occasional [email or web address] Information not available 09/27/2020 If You Are , What Was Your Level Of Alcohol Consumption Prior To ? None [email or web address] Information not available 04/06/2023 How Many Years Have You Consumed Alcohol? 12 [email or web address] Information not available 08/30/2021 Are You Blind Or Do You Have Difficulty Seeing? No Information not available 01/25/2021 What Is Your Level Of Caffeine Consumption? Moderate [email or web address] Information not available 08/30/2021 How Much Tobacco Do You Chew? None [email or web address] Information not available 08/30/2021 In The 14 Days Before Symptom Onset, Have You Had Close Contact With A Laboratory-confir med COVID-19 While That Case Was Ill? No [email or web address] Information not available 01/25/2021 In The 14 Days Before Symptom Onset, Have You Had Close Contact With A Person Who Is Under Investigation For COVID-19 While That Person Was Ill? No [email or web address] Information not available 01/25/2021 Have You Been To An Area Known To Be High Risk For COVID-19? No [email or web address] Information not available 01/25/2021 Are You Deaf Or Do You Have Serious Difficulty Hearing? No [email or web address] Information not available 01/25/2021 What Type Of Diet Are You Following? REGULAR [email or web address] Information not available 01/25/2021 What Is The Highest Grade Or Level Of School You Have Completed Or The Highest Degree You Have Received? [id number] [email or web address] Information not available 08/30/2021 What Is Your Occupation? [employer] Employee [email or web address] Information not available 08/30/2021 Have You Ever Been Counseled For Unhealthy Alcohol Use? No [email or web address] Information not available 04/06/2023 Do You Use Protection During Sex? No Information not available 08/30/2021 Do You Use Your Seat Belt Or Car Seat Routinely? Yes [email or web address] Information not available 01/25/2021 Do You Have Smoke And Carbon Monoxide Detectors In Your Home? Yes [email or web address] Information not available 01/25/2021 How Much Tobacco Do You Smoke? No [email or web address] Information not available 08/30/2021 Do You Feel Stressed (tense, Restless, Nervous, Or Anxious, Or Unable To Sleep At Night)? [id number] Information not available 01/25/2021 Do You Use Any Illicit Or Recreational Drugs? No [email or web address] Information not available 01/11/2021 Do You Use Sunscreen Routinely? Yes [email or web address] Information not available 01/25/2021 Has Tobacco Cessation Counseling Been Provided? No [email or web address] Information not available 04/06/2023 Have You Used IV Drugs? No [email or web address] Information not available 08/30/2021 Do You Or Have You Ever Used Any Other Forms Of Tobacco Or Nicotine? No [email or web address] Information not available 04/06/2023 Sex: Unknown Functional Status Question Answer Note LastModified by Organizat ion Details LastModified Time Do you have difficulty walking or climbing stairs? No [email or web address] Information not available 02/08/2024 Are you able to walk? [email or web address] Information not available 01/25/2021 Are you able to care for yourself? Yes Information not available 02/08/2024 Do you have difficulty dressing or bathing? No [email or web address] Information not available 02/08/2024 What is your exercise level? Occasional [email or web address] Information not available 08/30/2021 Mental Status None recorded. Family History Relationship Description Onset Age of this Age Resolved Age Notes LastModified by Organization Details LastModified Time Mother Uterine leiomyoma [email or web address] Not available 2024 10:17:29 Mother Uterine fibroids affecting [email or web address] Not available 2024 10:17:29 Maternal Grandmother Uterine leiomyoma [email or web address] Not available 2024 10:17:29 Maternal Grandmother Diabetes mellitus [email or web address] Not available 04/06 11:21:14 Maternal Grandmother Uterine fibroids affecting [email or web address] Not available 2024 10:17:29 Notes:Maternal grandmother: fibroids, Diabetes mellitus Mother: Fibroids Medical History Condition Response Other Y Blood Transfusion N Dermatologic Disorders N Gestational Diabetes N Anxiety Disorder Y Autoimmune disease N Arthritis N Polyps N Infertility N Acid Reflux (GERD) N Cancer N Varicosities N Stroke N Neurologic/Epilepsy N Fibromyalgia N Headaches N Kidney Disease N Heart Problems N Kidney or Bladder Problems N Eating Disorder N Art (IVF or FET) Y Hepatitis/Liver Disease N Urinary Tract Infection N Asthma Y Trauma/Violence N Thrombophilias N Allergies (Food, seasonal, environmental ) Y Breast Cancer N Drug/Latex Allergies/Reactions N Lung Disease N Defects or Inherited Disease N Breast Problem N Hematologic disorders N Anesthesia Complications N History of STI N Deep Vein Thrombosis N Polycystic ovary syndrome Y History of abnormal pap N Endometriosis N High Cholesterol N Thyroid Problems N GI Problems N Anemia N Psychiatric Illness N Ovarian Cancer N Diabetes N Pulmonary (TB, Asthma) N Eczema N Abuse/Domestic Violence N Depression/ depression N Heart Disease N Pre-Eclampsia N Hypertension N Osteoporosis N Gynecological History Statement/Question Response Flow Moderate Date of Last Mammogram Date of LMP 03/01/2025 N On BCP's at Conception? N STIs/STDs N Was last menstrual period normal Y HPV Vaccine N Duration of Flow (days) 4 Current Control Method Seeking Pre gnancy Age at First Child 30 Are cycles usually normal N Frequency of Cycle (Q days) 24 Sexually Active? Y Menses Monthly N Date of DEXA bone scan Age of first menstrual cycle 12 Date of Last Pap Smear 04/06/2023 Sexual Problems? N LMP Approximate Desired Control Method Hysterectom y N Obstetrics History GPAL:G 2 P 1 0 1 1 Type Value Full Term 1 Spontaneous 1 Living 1 Total 2 Past Encounters Encounter ID Performer Location Encounter Start Date Encounter Closed Date Diagnosis/Indication Diagnosis SNOMED-CT Code Diagnosis ICD10 Code Diagnosis Note [id number] Elva Gonzalez [place] [address] [address] 09/27/2020 09:38:51 09/27/2020 10:14:59 Gynecologic examination 51949816 Z01.419 Take Calcium with Vitamin D 1200mg daily if not receiving in daily diet. It is strongly advised to have an annual flu shot and up can obtain at most pharmacies . If you have not had a TDap shot in the last 10 years you should obtain one as well. Discussed with patient & provided with informatio n regarding Gardisil vaccine to prevent the 4 strains for HPV that cause cervical cancer if under age 26. Pt has never had abnormal pap and no risk factors. Declined pap this year. Encourage safe sexual practices, to use condoms and limit partners if not already in a monogamous relationsh ip. Do monthly self breast exams. Have mammogram yearly or every other year depending on family history. BRCA testing is now available for patients with strong genetic history of female cancer. If interested contact the office. Engage in daily exercise of low impact aerobic exercise 45-60 minutes 4-5 times weekly. Avoid tobacco and illicit drugs as well as using moderation with alcohol intake less than 1-2 8 oz beverages daily. This lifestyle behavior pattern will lead to less health conditions and longer life span. If BMI greater than 25 weight watchers or dietary consult advised. Patient received above instructio ns, and questions have been answered. If you have any questions please call or respond to this email. Patient was made aware of the patient portal and may obtain a paper copy of today's plan if desired. Trying to conceive 85169 9001 Z31.9 Pt has been trying for about 1 year. Using fertility tracker and ovulation kits. Cycles regular and normal. Timing of intercours e may be a contributi ng factor d/t working shift work. Discussed basics of timing and frequency of intercours e. Pt will give it a few more months and if no will consider infertilit y visit. [id number] Monica Fried [facility] [address],[place] [address] 01/11/2021 12:54:13 01/12/2021 15:20:15 Irregular periods 20707215 N92.6 Hirsutism 804443751 L68. 0 Acne 09395895 L70.9 Trying to conceive 19044 9001 Z31.9 [id number] [facility] [address],[place] [address] 01/24/2021 09:27:04 01/24/2021 14:04:25 Irregular periods 08232894 N92.6 L68.0 N97.9 [id number] Monica Fried [facility] [address],[place] [address] 01/25/2021 12:36:43 01/26/2021 14:19:01 Polycystic ovary syndrome 057893897 E28.2 Trying to conceive 73540 9001 Z31.9 [id number] [facility] [address],[place] [address] 08/25/2021 09:28:10 08/25/2021 13:37:35 Abnormal uterine bleeding 8968090511 9100 N93.8 [id number] Monica Fried [facility] [address],[place] [address] 08/30/2021 12:33:55 08/31/2021 13:34:36 Anovulation 92086371 N97.0 Irregular periods 662543 07 N92.6 [id number] Callie Wharton [place] [address],[place] [address] 03/25/2023 20:09:26 03/25/2023 20:10:20 [id number] [facility] [address],[place] [address] 04/06/2023 11:01:03 04/06/2023 14:10:48 Gynecologic examination 36035156 Z01.419 Z11.51 [id number] [facility] [address],[place] [address] 02/07/2024 09:25:20 02/07/2024 10:23:16 Female infertility 8688905 N97.[id number] [place] [address],[place] [address] 02/07/2024 10:45:23 02/08/2024 08:51:19 Trying to conceive 266741096 Z31.9 [id number] Monica Fried [facility] [address],[place] [address] 02/08/2024 13:29:26 02/08/2024 15:37:31 Artificial insemination 47463327 Z31.83 [id number] [facility] [address],[place] [address] 03/04/2024 14:33:36 03/04/2024 15:43:03 Female infertility 4899611 N97.[id number] [place] [address],[place] [address] 03/04/2024 16:06:33 03/04/2024 16:24:52 Trying to conceive 758558945 Z31.9 [id number] Monica Fried [facility] [address],[place] [address] 03/05/2024 13:17:14 03/05/2024 14:21:52 Routine care 252316150 Z34.90 Artificial insemination 92682720 Z31.83 call with cycle or +UPT [id number] Joan Malone [facility] [address],[place] [address] 05/01/2024 14:28:48 05/01/2024 15:22:43 Polycystic ovary syndrome 778129562 E28.2 E88.819 Counseled on OZEMPIC medication R/B's, Most common side effects, & use. All questions were answered to patient satisfacti on. Educated on Administra tion of Ozempic multi-use pen.Return demo with initial injection given today.All questions answered and feels comfortabl e this this therapy/we ekly administra tion.RTO x 4wks F/U med check with Rashid Fried Time spent in visit is a total of 21 mins with at least 50% of visit consisting of counseling and review of plan of care. [id number] [facility] [address],[place] [address] 05/30/2024 10:41:41 05/30/2024 11:11:57 Polycystic ovary syndrome 715108029 E28.2 continue ozempic on current dose, ok for refillcont inue active lifestyle and healthy diet Female infertility 62511 08 N97.9 monitor cycles Insulin resistance 01406 5000 E88.819 Diarrhea 58311116 R19.7 resolved after discontinu ed metformin continue to monitor for GI sxs [id number] [facility] [address],[place] [address] 08/29/2024 10:25:46 08/29/2024 11:04:58 Nausea and vomiting 42916274 R11.2 Obesity 406805492 E66.9 continue wegovy weekly f/u 12/2024 med check or sooner if needed [id number] Jazmine Ceballos [place] [address],[place] [address] 12/22/2024 09:30:20 12/22/2024 10:21:56 CT of pelvis abnormal [id number] R93.89 [id number] Jordan Prabhakar MD [place] [address],[place] [address] 01/03/2025 12:27:33 01/05/2025 11:46:39 Pelvic congestion syndrome 38659207 N94.89 39-year-ol d female pelvic pain and dyspareuni a. She was seen by her primary care doctor and a CT scan was ordered. There appears to be some left-sided dilation of the pelvic veins. This is consistent with pelvic congestion syndrome. Her symptoms were consistent with pelvic congestion syndrome. We discussed the etiology, natural history, treatment of pelvic congestion syndrome. Talked about her treatment options in detail. We reviewed her ultrasound results today. We reviewed her CT report. She is considerin g hysterecto my. Talked about robotic assisted hysterecto my bilateral salpingect jacey. The patient understand s the procedure. The procedure was described to the patient in great detail. the patient also understand s the risks. The risks were also explained in detail. She understand s that injuries May occur during surgery. She understand s these injuries can result in hospitaliz ation, more surgery, and severe illness. She understand s there is risk of hemorrhage and infection. I spent over 30 minutes on her care in total, including documentat ion. Dyspareunia 49002476 N94 .10 Pain in pelvis 55379717 R10.2 [id number] Jordan Prabhakar MD [place] [address] [address] 03/03/2025 10:16:46 03/03/2025 13:57:11 Pelvic congestion syndrome 44116009 N94.89 This patient is a 39-year-ol d female with pelvic pain and pelvic congestion syndrome. We have agreed to perform robotic assisted hysterecto my with bilateral salpingect jacey. She understand s the risks, benefits, and alternativ es. She has completed the informed consent process and is ready to proceed. Health Concerns Section Related Observation LastModified by Organization Detai ls LastModified Time None Recorded Concern Status LastModified by Organization Details LastModified Time None Recorded Advance Directives Directive N: Payers Encounter Date Sequence Insurance Name Policy Number Policy Ferguson Covered Member ID Ferguson Member ID Guarantor Name 05/30/2024 1 [place] 105 Regine Busch [id number] Regine Busch 08/29/2024 1 [place] 105 Regine Busch [id number] Regine Busch 12/22/2024 1 [employer] [id number] Regine Busch [id number] Regine Busch 01/03/2025 1 [employer] [id number] Regine Busch [id number] Regine Busch 03/03/2025 1 [employer] [id number] Regine Busch [id number] Regine Busch Notes Date Note Type Note Provider Name and Address Organization Details Recorded Time 05/30/2024 text/html med check inocente kemp, has lost 7 lbs. continuing diet and exercise.no side effects, no complaints,history of daily diarrhea while on metformin, since stopping all GI sxs have resolvedwould like to continue on the current dosereviewed notes/abs from pcp, will place a copy in the chart Monica Fried CNM [address], [place], [address], [facility] 05/30/2024 11:11:27 08/29/2024 text/html paulino med check , doing well bmi 26, more nausea than before, losing weight slowly, less pain in joints, more energy, working out 6 x a week, would like to continue [address] [place], [address], [facility] 08/29/2024 11:03:41 01/03/2025 text/html 39-year-old fema le pelvic pain and dyspareunia. She was seen by her primary care doctor and a CT scan was ordered. There appears to be some left-sided dilation of the pelvic veins. This is consistent with pelvic congestion syndrome. Her symptoms were consistent with pelvic congestion syndrome. We discussed the etiology, natural history, treatment of pelvic congestion syndrome. Talked about her treatment options in detail. We reviewed her ultrasound results today. We reviewed her CT report. She is considering hysterectomy. Talked about robotic assisted hysterectomy bilateral salpingectomy. The patient understands the procedure. The procedure was described to the patient in great detail. the patient also understands the risks. The risks were also explained in detail. She understands that injuries May occur during surgery. She understands these injuries can result in hospitalization, more surgery, and severe illness. She understands there is risk of hemorrhage and infection. I spent over 30 minutes on her care in total, including documentation. Jordan Prabhakar MD [address], [place], [address], [facility] 01/03/2025 13:34:45 03/03/2025 text/html This patient is a 39-year-old female with pelvic pain and pelvic congestion syndrome. We have agreed to perform robotic assisted hysterectomy with bilateral salpingectomy. She understands the risks, benefits, and alternatives. She has completed the informed consent process and is ready to proceed. The patient understands the procedure. The procedure was described to the patient in great detail. the patient also understands the risks. The risks were also explained in detail. She understands that injuries May occur during surgery. She understands these injuries can result in hospitalization, more surgery, and severe illness. She understands there is risk of hemorrhage and infection. Jordan Prabhakar MD [address], [place], [address], [facility] 03/03/2025 13:52:45 OBGyn Episode Ob Episode Information Episode Created Date Number of Fetuses Patient Bloodtype Patient rh Status Prepregnancy Weight lbs Domestic Partner Domestic Partner Phone Father Name Television And Radio Repairer Status 09/27/20 20 1 CLOSED Fetus Data First Name Last Name Admitted to NICU Weight (g) Sex Living Outcome Pediatric Complications Fetus ID Race Codes Race Delivery Type 3033.16 [id number] F Full Term 5800 Primary Gunner Calculation Initial Gunner Date Initial Exam Date Initial Exam Provider Initial Ultrasound Date Last Menstrual Period Date Ultra Sound Weeks Gestation 0 Eighteen To Twenty Week Gunner Update Ultra Sound Date Fundal Height At Umbil Quickening Date Ultra Sound Latest Weeks Gestation Final Gunner Confirmed By Final Gunner Confirmed Date Final Gunner Date Ultra Sound Latest Days Gestation 0 0 Menstrual History Last Menstrual Date Menses Monthly On Bcp Conception Prior Menses Frequency Hcg Plus Date Menarche Onset Age Delivery Information Delivery Date Delivery Type Labor Anesthesia Weeks Gestation Incision Type Labor Labor Length Hrs Delivered By Post Complications Tubal Sterilization Discharge Date Comments 4 37 Addilyn/ placenta previa Discharge Information Feeding Method Contraceptive Method Maternal HG B and HCT Levels Ob Episode Information Episode Created Date Number of Fetuses Patient Bloodtype Patient rh Status Prepregnancy Weight lbs Domestic Partner Domestic Partner Phone Father Name Television And Radio Repairer Status 03/31/20 24 1 CLOSED Fetus Data First Name Last Name Admitted to NICU Weight (g) Sex Living Outcome Pediatric Complications Fetus ID Race Codes Race Delivery Type , Spontane ous [id number] Gunner Calculation Initial Gunner Date Initial Exam Date Initial Exam Provider Initial Ultrasound Date Last Menstrual Period Date Ultra Sound Weeks Gestation 0 Eighteen To Twenty Week Gunner Update Ultra Sound Date Fundal Height At Umbil Quickening Date Ultra Sound Latest Weeks Gestation Final Gunner Confirmed By Final Gunner Confirmed Date Final Gunner Date Ultra Sound Latest Days Gestation 0 0 Menstrual History Last Menstrual Date Menses Monthly On Bcp Conception Prior Menses Frequency Hcg Plus Date Menarche Onset Age Delivery Information Delivery Date Delivery Type Labor Anesthesia Weeks Gestation Incision Type Labor Labor Length Hrs Delivered By Post Complications Tubal Sterilization Discharge Date Comments 4 Discharge Information Feeding Method Contraceptive Method Maternal HG B and HCT Levels
--- OUTSIDE RECORDS SUMMARY | 2025-03-05 10:05 | XMS_ITS | Patient Health Record ---
Author Organization [facility] Address [address] [place] [address] Care Team Providers Care Battery Charger Tester Name Role Phone MiahChelseaMandy Primary Care Provider Unavaila Mable Beckman Unavailable [phone] Blayne Garcia Unavailable [phone] [employer]-Migration, Provider Unavailable Unavailab le Allergies No Known Allergies Reason For Referral No Information Medications Medication SIG (Take, Route, Frequency, Duration) Notes Start Date End Date Status SINGULAIR 10 mg 1 tab(s) orally 30 minutes before allergy shots for 30 day(s) Active Auvi-Q 0.3 MG/0.3ML as directed intramuscularly once for 30 day(s) Active METFORMIN 500 mg 1 tab(s) orally 2 ti mes a day Active Singulair 10 MG 1 tab(s) orally 30 minutes before allergy shots for 30 day(s) Active BUSPIRONE 10 mg 1 tab(s) orally 2 ti mes a day Active metFORMIN HCl 500 MG 1 tab(s) orally 2 t imes a day Not-Taking ALBUTEROL (EQV-PROAIR HFA) 90 mcg/inh 2 puff(s) inhaled every 6 hours Active busPIRone HCl 10 MG 1 tab(s) orally 2 ti mes a day Active Wegovy 1 MG/0.5ML 0.5 mL Subcutaneous Active PATADAY TWICE A DAY RELIEF 0.1% 1 gtt in each affected eye 2 times a day Active SIT (TRADITIONAL) variable per schedule SC per schedule for to be determined Active FAMOTIDINE 20 mg 1 tab(s) orally 30 minutes prior to SCIT Active FEXOFENADINE HYDROCHLORIDE 180 mg 1 tab(s) orally once a day Active Famotidine 20 MG 1 tab(s) orally 30 minutes prior to SCIT Active NASACORT ALLERGY 24HR 55 mcg/inh 2 spray(s) intranasally once a day Active Fexofenadine HCl 180 MG 1 tab(s) orally once a day Active AUVI -Q 0.3 mg as directed intramuscularly once for 30 day(s) Active Nasacort Allergy 24HR 55 MCG/ACT 2 spray(s) intranasally once a day Active Immunizations Vaccine Route Administration Date Status Comme nts NOC Fluzone Quadrivalent Unknown 08/31/2022 Administere d Social History Tobacco Use: Social History Observation Description Date Details (start date - stop date) Former Smoker NA - NA Tobacco Control (Standard) Question Answer Notes Tobacco use: Former smoker How long has it been since you last smoked? 5-10 years Problems Problem Type SNOMED Code ICD Code Onset Dates Problem Status W/U Status Risk Notes Problem Shortness of breath (091186092) Shortness of breath (R06.02) Active confirmed Problem Chronic allergic conjunctivitis (38894920) Other chronic allergic conjunctivitis (H10.45) Active confirmed Problem Allergic rhinitis caused by pollen (disorder) (54451294) Allergic rhinitis due to pollen (J30.1) Active confirmed Problem Allergic rhinitis (15572352) Other allergic rhinitis (J30.89) Active confirmed Problem Chronic rhinitis (22152352) Chronic rhinitis (J31.0) Active confirmed Problem Ingestion dermatitis caused by food (060487728) Dermatitis due to ingested food (L27.2) Active confirmed Problem Allergic rhinitis caused by pollen (disorder) (08699999) Allergic rhinitis due to pollen (J30.1) Active confirmed Problem Allergic rhinitis caused by animal hair and dander (552618376432692) Allergic rhinitis due to animal (cat) (dog) hair and dander (J30.81) Active confirmed Problem Allergic rhinitis (04198323) Other allergic rhinitis (J30.89) Active confirmed Problem Chronic allergic conjunctivitis (74406638) Other chronic allergic conjunctivitis (H10.45) Active confirmed Problem Eruption of skin (966710069) Rash and other nonspecific skin eruption (R21) Active confirmed Problem Chronic sinusitis (70024779) Other chronic sinusitis (J32.8) Active confirmed Vital Signs Respiratory Rate 17 /min 09/15/2024 Oximetry 98 % 09/15/2024 Blood pressure diastolic 72 mm Hg 09/15/2024 Height 64 in 09/15/2024 Blood pressure systolic 107 mm Hg 09/15/2024 Weight 155.2 lbs 09/15/2024 BMI 26.64 kg/m2 09/15/2024 Encounters Encounter Location Date Provider Diagnosis [address] [place] [address] 05/10/2024 Provider ZZ-Migration [facility] [address] [facility] [place] [address] 03/10/2024 Mable Tyler Allergic rhinitis du e to animal (cat) (dog) hair and dander J30.81 ; Allergic rhinitis due to pollen J30.1 ; Other allergic rhinitis J30.89 ; Other chronic allergic conjunctivitis H10.45 ; Shortness of breath R06.02 ; Other chronic sinusitis J32.8 ; Dermatitis due to ingested food L27.2 and Rash and other nonspecific skin eruption R21 [address] [place] [address] 04/10/2024 Blayne Garcia Allergic rhinitis du e to pollen J30.1 ; Other allergic rhinitis J30.89 ; Allergic rhinitis due to animal (cat) (dog) hair and dander J30.81 and Other chronic allergic conjunctivitis H10.[address] [place] [address] 05/12/2024 Blayne Garcia Allergic rhinitis du e to pollen J30.1 ; Other allergic rhinitis J30.89 ; Allergic rhinitis due to animal (cat) (dog) hair and dander J30.81 and Other chronic allergic conjunctivitis H10.[address] [place] [address] 06/09/2024 Blayne Garcia Allergic rhinitis du e to pollen J30.1 ; Other allergic rhinitis J30.89 ; Allergic rhinitis due to animal (cat) (dog) hair and dander J30.81 and Other chronic allergic conjunctivitis H10.[address] [place] [address] 07/14/2024 Blayne Garcia Allergic rhinitis du e to pollen J30.1 ; Other allergic rhinitis J30.89 ; Allergic rhinitis due to animal (cat) (dog) hair and dander J30.81 and Other chronic allergic conjunctivitis H10.45 [facility] [address] [place] [address] 07/21/2024 Blayne Garcia Allergic rhinitis du e to pollen J30.1 ; Other allergic rhinitis J30.89 ; Allergic rhinitis due to animal (cat) (dog) hair and dander J30.81 and Other chronic allergic conjunctivitis H10.45 [facility] [place] [address] [facility] [place] [address] 07/31/2024 Blayne Garcia Allergic rhinitis du e to pollen J30.1 ; Other allergic rhinitis J30.89 ; Allergic rhinitis due to animal (cat) (dog) hair and dander J30.81 and Other chronic allergic conjunctivitis H10.45 [facility] [place] [address] [facility] [place] [address] 08/25/2024 Blayne Garcia Allergic rhinitis du e to pollen J30.1 ; Other allergic rhinitis J30.89 ; Allergic rhinitis due to animal (cat) (dog) hair and dander J30.81 and Other chronic allergic conjunctivitis H10.45 [facility] [place] [address] [facility] [place] [address] 09/15/2024 Mable Scott Allergic rhinitis du e to animal (cat) (dog) hair and dander J30.81 ; Allergic rhinitis due to pollen J30.1 ; Other allergic rhinitis J30.89 ; Other chronic allergic conjunctivitis H10.45 ; Shortness of breath R06.02 ; Other chronic sinusitis J32.8 ; Dermatitis due to ingested food L27.2 and Rash and other nonspecific skin eruption R21 [facility] [place] [address] [place] [place] [address] 10/27/2024 Blayne Garcia Allergic rhinitis du e to pollen J30.1 ; Other allergic rhinitis J30.89 ; Allergic rhinitis due to animal (cat) (dog) hair and dander J30.81 and Other chronic allergic conjunctivitis H10.45 [facility] [place] [address] [place] [place] [address] 11/24/2024 Blayne Garcia Allergic rhinitis du e to pollen J30.1 ; Other allergic rhinitis J30.89 ; Allergic rhinitis due to animal (cat) (dog) hair and dander J30.81 and Other chronic allergic conjunctivitis H10.45 [facility] [address] [place] [place] [address] 12/29/2024 Blayne Garcia Allergic rhinitis du e to pollen J30.1 ; Other allergic rhinitis J30.89 ; Allergic rhinitis due to animal (cat) (dog) hair and dander J30.81 and Other chronic allergic conjunctivitis H10.45 [facility] [address] [place] [place] [address] 01/27/2025 Blayne Garcia Allergic rhinitis du e to pollen J30.1 ; Other allergic rhinitis J30.89 ; Allergic rhinitis due to animal (cat) (dog) hair and dander J30.81 and Other chronic allergic conjunctivitis H10.[address] [place] [address] 02/26/2025 Blayne Garcia Allergic rhinitis du e to pollen J30.1 ; Other allergic rhinitis J30.89 ; Allergic rhinitis due to animal (cat) (dog) hair and dander J30.81 and Other chronic allergic conjunctivitis H10.45 Assessments Encounter Date Diagnosis (ICD Code) Assessment Notes Treatment Notes Treatment Clinical Notes Section Notes 03/10/2024 Allergic rhinitis due to pollen (ICD-10 - J30.1) Follow allergen avoidance, meds and continue SCIT as an adjunctive treatment to current regimen. 03/10/2024 Allergic rhinitis due to animal (cat) (dog) hair and dander (ICD-10 - J30.81) Regine, clearly suffers from atopic disease based upon our skin testing and history. - S/p rapid desensitization , now on MM still without issues. Continues triple premedication. Dosing received today without issues. AIE on hand - Continue meds as needed - Follow-up in 6 months 04/10/2024 Allergic rhinitis due to pollen (ICD-10 - J30.1) 05/12/2024 Allergic rhinitis due to pollen (ICD-10 - J30.1) 06/09/2024 Allergic rhinitis due to pollen (ICD-10 - J30.1) 07/14/2024 Allergic rhinitis due to pollen (ICD-10 - J30.1) 07/21/2024 Allergic rhinitis due to pollen (ICD-10 - J30.1) 07/31/2024 Allergic rhinitis due to pollen (ICD-10 - J30.1) 08/25/2024 Allergic rhinitis due to pollen (ICD-10 - J30.1) 09/15/2024 Allergic rhinitis due to pollen (ICD-10 - J30.1) Follow allergen avoidance, meds and continue SCIT as an adjunctive treatment to current regimen. 09/15/2024 Allergic rhinitis due to animal (cat) (dog) hair and dander (ICD-10 - J30.81) Regine, clearly suffers from atopic disease based upon our skin testing and history. - S/p rapid desensitization , now on MM still without issues. Continues triple premedication. Dosing received today without issues. AIE on hand - Continue meds as needed - Follow-up in 6 months 10/27/2024 Allergic rhinitis due to pollen (ICD-10 - J30.1) 11/24/2024 Allergic rhinitis due to pollen (ICD-10 - J30.1) 12/29/2024 Allergic rhinitis due to pollen (ICD-10 - J30.1) 01/27/2025 Allergic rhinitis due to pollen (ICD-10 - J30.1) 02/26/2025 Allergic rhinitis due to pollen (ICD-10 - J30.1) 02/26/2025 Other allergic rhinitis (ICD-10 - J30.89) 01/27/2025 Other allergic rhinitis (ICD-10 - J30.89) 12/29/2024 Other allergic rhinitis (ICD-10 - J30.89) 11/24/2024 Other allergic rhinitis (ICD-10 - J30.89) 10/27/2024 Other allergic rhinitis (ICD-10 - J30.89) 08/25/2024 Other allergic rhinitis (ICD-10 - J30.89) 09/15/2024 Other allergic rhinitis (ICD-10 - J30.89) Follow allergen avoidance, meds and continue SCIT as an adjunctive treatment to current regimen. 07/31/2024 Other allergic rhinitis (ICD-10 - J30.89) 07/21/2024 Other allergic rhinitis (ICD-10 - J30.89) 07/14/2024 Other allergic rhinitis (ICD-10 - J30.89) 06/09/2024 Other allergic rhinitis (ICD-10 - J30.89) 05/12/2024 Other allergic rhinitis (ICD-10 - J30.89) 04/10/2024 Other allergic rhinitis (ICD-10 - J30.89) 03/10/2024 Other allergic rhinitis (ICD-10 - J30.89) Follow allergen avoidance, meds and continue SCIT as an adjunctive treatment to current regimen. 03/10/2024 Other chronic allergic conjunctivitis (ICD-10 - H10.45) Follow allergen avoidance, meds and continue SCIT as an adjunctive treatment to current regimen. -start Pataday OTC 04/10/2024 Allergic rhinitis due to animal (cat) (dog) hair and dander (ICD-10 - J30.81) 05/12/2024 Allergic rhinitis due to animal (cat) (dog) hair and dander (ICD-10 - J30.81) 06/09/2024 Allergic rhinitis due to animal (cat) (dog) hair and dander (ICD-10 - J30.81) 07/14/2024 Allergic rhinitis due to animal (cat) (dog) hair and dander (ICD-10 - J30.81) 07/21/2024 Allergic rhinitis due to animal (cat) (dog) hair and dander (ICD-10 - J30.81) 07/31/2024 Allergic rhinitis due to animal (cat) (dog) hair and dander (ICD-10 - J30.81) 08/25/2024 Allergic rhinitis due to animal (cat) (dog) hair and dander (ICD-10 - J30.81) 09/15/2024 Other chronic allergic conjunctivitis (ICD-10 - H10.45) Follow allergen avoidance, meds and continue SCIT as an adjunctive treatment to current regimen. -using Pataday OTC with benefit 10/27/2024 Allergic rhinitis due to animal (cat) (dog) hair and dander (ICD-10 - J30.81) 11/24/2024 Allergic rhinitis due to animal (cat) (dog) hair and dander (ICD-10 - J30.81) 12/29/2024 Allergic rhinitis due to animal (cat) (dog) hair and dander (ICD-10 - J30.81) 01/27/2025 Allergic rhinitis due to animal (cat) (dog) hair and dander (ICD-10 - J30.81) 02/26/2025 Allergic rhinitis due to animal (cat) (dog) hair and dander (ICD-10 - J30.81) 02/26/2025 Other chronic allergic conjunctivitis (ICD-10 - H10.45) 01/27/2025 Other chronic allergic conjunctivitis (ICD-10 - H10.45) 12/29/2024 Other chronic allergic conjunctivitis (ICD-10 - H10.45) 11/24/2024 Other chronic allergic conjunctivitis (ICD-10 - H10.45) 10/27/2024 Other chronic allergic conjunctivitis (ICD-10 - H10.45) 09/15/2024 Shortness of breath (ICD-10 - R06.02) SOB in the setting of cat exposure with wheezing noted on exercise - initial spirometry was normal with mild scalloping - Continue ROSE PRN, consider controller if symptoms occur outside of cat exposure 08/25/2024 Other chronic allergic conjunctivitis (ICD-10 - H10.45) 07/31/2024 Other chronic allergic conjunctivitis (ICD-10 - H10.45) 07/21/2024 Other chronic allergic conjunctivitis (ICD-10 - H10.45) 07/14/2024 Other chronic allergic conjunctivitis (ICD-10 - H10.45) 06/09/2024 Other chronic allergic conjunctivitis (ICD-10 - H10.45) 05/12/2024 Other chronic allergic conjunctivitis (ICD-10 - H10.45) 04/10/2024 Other chronic allergic conjunctivitis (ICD-10 - H10.45) 03/10/2024 Shortness of breath (ICD-10 - R06.02) SOB in the setting of cat exposure with wheezing noted on exercise - initial spirometry was normal with mild scalloping - Continue ROSE PRN, consider controller if symptoms occur outside of cat exposure 03/10/2024 Other chronic sinusitis (ICD-10 - J32.8) - consider PIDD workup if infections return; admits to 1 in the last year 09/15/2024 Other chronic sinusitis (ICD-10 - J32.8) - consider PIDD workup if infections return; admits to 1 in the last year 09/15/2024 Dermatitis due to ingested food (ICD-10 - L27.2) Oral itching with fresh fruits, not present when baked or cooked - history consistent with oral allergy syndrome, a very mild form of food allergy that is unlikely to progress to anaphylaxis so carrying AIE at all times is not necessary. Continue avoidance as desired 03/10/2024 Dermatitis due to ingested food (ICD-10 - L27.2) Oral itching with fresh fruits, not present when baked or cooked - history consistent with oral allergy syndrome, a very mild form of food allergy that is unlikely to progress to anaphylaxis so carrying AIE at all times is not necessary. Continue avoidance as desired 03/10/2024 Rash and other nonspecific skin eruption (ICD-10 - R21) Recent rash concerning for hives that occured after consuming shrimp, has had in past without issues. No other associated symptoms - SPT was negative to shrimp, she has since consumed again without issues - continue to consume ad radha 09/15/2024 Rash and other nonspecific skin eruption (ICD-10 - R21) Recent rash concerning for hives that occured after consuming shrimp, has had in past without issues. No other associated symptoms - SPT was negative to shrimp, she has since consumed again without issues - continue to consume ad radha 03/10/2024 Other 09/15/2024 Other Plan Of Treatment Pending Test Test Name Order Date SHRIMP (F24) IGE 12/20/2021 Next Appt Details Provider Name:Mable Scott , 03/16/2025 09:30:00 AM, [address] [place], [address], Provider Name:Blayne Garcia , 03/26/2025 04:40:00 PM, [address] [place], [address], Insurance Providers Payer Name Payer Address Payer Phone Subscriber Number Group Number Insured Name Patient Relationship to Insured Coverage Start Date Coverage End Date [employer] POS II [address] [place] [address] [id number] Regine Busch Self - patient is the insured 5 Medical (General) History Medical History History ICD Code Depression, unspecified F32.A Surgical History Surgery Date(Month/Year) 10/13/2014 Appendectomy 08/02/2008 Hospitalization History Reason Date(Month/Year) See surgical history
--- OUTSIDE RECORDS SUMMARY | 2025-03-05 10:05 | XMS_ITS | Referral Summary ---
Author Organization [facility] Address [address] [place] [address] Care Team Providers Care Panel Coverer Name Role Phone Mandy Dooley MD Primary Care Pro vider Encounters Date Type Department Care Team Description 02/27/2025 11:30 AM CDT Office Visit [facility] at [address] [address] Mandy Dooley MD SLYVIA (generalized anxiety disorder) (Primary Dx) 01/16/2025 9:15 AM REGENERATION OPERATOR Office Visit [facility] at [address] [address] Mandy Dooley MD SYLVIA (generalized anxiety disorder) (Primary Dx) from Last 3 Months Allergies Active Allergy Reactions Criticality Noted Date [...] day 270 tablet 01/16/20 25 2024 Disconti gamaled(Reo rder) Active Problems Problem Noted Date Diagnosed Date Mild intermittent asthma without complication Assessment & Plan (11/17/2024 9:32 AM REGENERATION OPERATOR): controlled Continue albuterol as needed Assessment & Plan (01/29/2024 8:32 AM REGENERATION OPERATOR): Stable Continue albuterol as needed Assessment & Plan (08/27/2023 10:12 AM CDT): Stable Continue albuterol as needed Environmental allergies 08/27/2023 Assessment & Plan (11/17/2024 9:32 AM REGENERATION OPERATOR): Following with blocking machine tender Assessment & Plan (01/29/2024 8:32 AM REGENERATION OPERATOR): Stable Following with blocking machine tender On kristine & nasonex Assessment & Plan (08/27/2023 10:18 AM CDT): Stable Following with blocking machine tender On kristine & nasonex Vaginal itching 07/07/2023 Assessment & Plan (07/07/2023 6:26 PM CDT): PO diflucan 150 mg once a week x 3 weeks Nystatin powder as prescribed Clean area clean, dry, avoid moisture accumulation Yeast culture PCOS (polycystic ovarian syndrome) 04/11/2021 Assessment & Plan (11/17/2024 9:45 AM REGENERATION OPERATOR): Following with gynecology On wegovy Assessment & Plan (01/29/2024 8:39 AM REGENERATION OPERATOR): Following with gynecology Continue metformin, adjust as needed to avoid diarrhea Assessment & Plan (08/27/2023 10:19 AM CDT): Following with gynecology On metformin, could decrease to 500mg twice a day if persistent side effects Assessment & Plan (04/11/2021 5:33 PM CDT): Following with gynecology, On clomid & metformin Annual physical exam 07/06/2020 Assessment & Plan (11/17/2024 9:44 AM REGENERATION OPERATOR): Reviewed PMH & FH Phq reviewed Reviewed medications and supplements HCM: orders placed as needed Assessment & Plan (08/27/2023 10:02 AM CDT): Reviewed PMH & FH Phq reviewed Reviewed medications and supplements HCM: orders placed as needed Assessment & Plan (08/31/2022 4:31 PM CDT): Former smoker PAP: UTD, follows with gynecology at [facility] BP wnl Body mass index is 30.59 kg/m . Discussed diet and exercise Feels safe at home Discussed skin cancer prevention and screening Flu vaccine today, otherwise UTD Assessment & Plan (08/12/2021 10:53 AM CDT): Former smoker PAP: UTD, follows with gynecology at [facility] BP wnl PHQ Screening PHQ-2 Total Score [...] day Assessment & Plan (01/16/2025 9:33 AM REGENERATION OPERATOR): GAD7: 16, uncontrolled Increase buspar to 15mg three times a day Assessment & Plan (11/17/2024 9:45 AM REGENERATION OPERATOR): GAD7: 9, uncontrolled Increase buspar to 20mg twice a day Assessment & Plan (01/29/2024 8:30 AM REGENERATION OPERATOR): Improved Continue buspar 15mg twice a day Assessment & Plan (08/27/2023 10:21 AM CDT): Uncontrolled Increase buspar to 15mg twice a day Continue regular exercise Assessment & Plan (12/06/2022 2:16 PM REGENERATION OPERATOR): Uncontrolled with recent return to the office Reasonable accomodation paperwork filled out in support of returning to partial telehealth work which she did well with previously [...] Follow-up includes: nutrition counseling and exercise counseling. Immunizations Immunization Administration Dates Next Due Influenza, Quadrivalent, Spl it, Preservative Free, Intramuscular 08/27/2023,08/31/2022,08/12/2021,07/28 Influenza, Trivalent, Preser vative Free, Intramuscular 10/16/2024,08/27/2014 Pneumococcal Conjugate Pcv20 11/17/2024 Tdap 11/17/2024,10/01/2014 Social History Tobacco Use Types Packs/Day Years [...] on file Legal Sex Female 7:44 PM REGENERATION OPERATOR Gender Identity Not on file Sexual Orientation [...] 02/27/2025 11:35 AM CDT Plan of Treatment Not on file Insurance [employer] Care Teams Panel Coverer Relationship Specialty Start Date End Date Mandy Dooley MD PCP - General Family Medicine 07/02/20
--- OUTSIDE RECORDS SUMMARY | 2025-03-05 10:05 | XMS_ITS ---
Author Organization [facility] Address [address] [place] [address] Care Team Providers Care Day Care Aide Name Role Phone Mandy Dooley Primary Care Provider Unavaila Mable Beckman Unavailable [phone] Blayne Garcia Unavailable [phone] REASON FOR VISIT SCIT - Traditional Schedule Allergy Immunotherapy Medications Medication SIG (Take, Route, Frequency, Duration) Notes Start Date End Date Status Singulair 10 MG 1 tab(s) orally 30 minutes before allergy shots for 30 day(s) Active Auvi-Q 0.3 MG/0.3ML as directed intramuscularly once for 30 day(s) Active Nasacort Allergy 24HR 55 MCG/ACT 2 spray(s) intranasally once a day Active Fexofenadine HCl 180 MG 1 tab(s) orally once a day Active Famotidine 20 MG 1 tab(s) orally 30 minutes prior to SCIT Active SIT (TRADITIONAL) variable per schedule SC per schedule for to be determined Active PATADAY TWICE A DAY RELIEF 0.1% 1 gtt in each affected eye 2 times a day Active Wegovy 1 MG/0.5ML 0.5 mL Subcutaneous Active busPIRone HCl 10 MG 1 tab(s) orally 2 ti mes a day Active metFORMIN HCl 500 MG 1 tab(s) orally 2 t imes a day Not-Taking SINGULAIR 10 mg 1 tab(s) orally 30 minutes before allergy shots for 30 day(s) Active AUVI -Q 0.3 mg as directed intramuscularly once for 30 day(s) Active NASACORT ALLERGY 24HR 55 mcg/inh 2 spray(s) intranasally once a day Active FEXOFENADINE HYDROCHLORIDE 180 mg 1 tab(s) orally once a day Active FAMOTIDINE 20 mg 1 tab(s) orally 30 minutes prior to SCIT Active ALBUTEROL (EQV-PROAIR HFA) 90 mcg/inh 2 puff(s) inhaled every 6 hours Active BUSPIRONE 10 mg 1 tab(s) orally 2 ti mes a day Active METFORMIN 500 mg 1 tab(s) orally 2 ti mes a day Active Encounters Encounter Location Date Provider Diagnosis [facility] [address] [place] [address] 01/27/2025 Blayne Garcia Allergic rhinitis due to pollen J30.1 ; Other allergic rhinitis J30.89 ; Allergic rhinitis due to animal (cat) (dog) hair and dander J30.81 and Other chronic allergic conjunctivitis H10.45 Assessments Encounter Date Diagnosis (ICD Code) Assessment Notes Treatment Notes Treatment Clinical Notes Section Notes 01/27/2025 Allergic rhinitis due to pollen (ICD-10 - J30.1) 01/27/2025 Other allergic rhinitis (ICD-10 - J30.89) 01/27/2025 Allergic rhinitis due to animal (cat) (dog) hair and dander (ICD-10 - J30.81) 01/27/2025 Other chronic allergic conjunctivitis (ICD-10 - H10.45) Plan Of Treatment Next Appt Details Follow Up: 1 Week, Reason: Provider Name:Mable Scott , 03/16/2025 09:30:00 AM, [address] [place], [place] [address] [place], [address], Provider Name:Blayne Garcia , 03/26/2025 04:40:00 PM, [address] [place], [place] [address] [place], [address], Progress Notes * Eva DOHERTY: 7 (39 yo F)Acc No.[id number]:01/27/2025 SCIT-Aeroallergen Patient: Regine SONI Provider: Esau Garcia MD :1985 A ge:39 Y S ex:Female Date:01/27/2025 Address:[facility] [address] [facility] Pcp:Mandy Dooley Subjective: * Chief Complaints: * S CIT - Traditional Schedule Allergy Immunotherapy * HPI: * Introduction: The patient is [...] immunotherapy) is on file. * Medical History: * Surgical History: * Hospitalization/Major Diagno stic Procedure: * Medications: T akingALBUTEROL (EQV-PROAIR HFA) 90 mcg/inh aerosol 2 puff(s) inhaled every 6 hours BUSPIRONE 10 mg tablet 1 tab(s) orally 2 times a day METFORMIN 500 mg tablet 1 tab(s) orally 2 times a day SINGULAIR 10 mg tablet 1 tab(s) orally 30 minutes before allergy shots AUVI -Q 0.3 mg kit as directed intramuscularly once NASACORT ALLERGY 24HR 55 mcg/inh spray 2 spray(s) intranasally once a day FEXOFENADINE HYDROCHLORIDE 180 mg tablet 1 tab(s) orally once a day FAMOTIDINE 20 mg tablet 1 tab(s) orally 30 minutes prior to SCIT SIT (TRADITIONAL) variable see record per schedule SC per schedule PATADAY TWICE A DAY RELIEF 0.1% solution 1 gtt in each affected eye 2 times a day Wegovy 1 MG/0.5ML Solution Auto-injector 0.5 mL Subcutaneous busPIRone HCl 10 MG Tablet 1 tab(s) orally 2 times a day Singulair 10 MG Tablet 1 tab(s) orally 30 minutes before allergy shots Auvi-Q 0.3 MG/0.3ML Solution Auto-injector as directed intramuscularly once Nasacort Allergy 24HR 55 MCG/ACT Aerosol 2 spray(s) intranasally once a day Fexofenadine HCl 180 MG Tablet 1 tab(s) orally once a day Famotidine 20 MG Tablet 1 tab(s) orally 30 minutes prior to SCIT Taking ALBUTEROL (EQV-PROAIR HFA) 90 mcg/inh aerosol 2 puff(s) inhaled every 6 hours Taking BUSPIRONE 10 mg tablet 1 tab(s) orally 2 times a day Taking METFORMIN 500 mg tablet 1 tab(s) orally 2 times a day Taking SINGULAIR 10 mg tablet 1 tab(s) orally 30 minutes before allergy shots Taking AUVI -Q 0.3 mg kit as directed intramuscularly once Taking NASACORT ALLERGY 24HR 55 mcg/inh spray 2 spray(s) intranasally once a day Taking FEXOFENADINE HYDROCHLORIDE 180 mg tablet 1 tab(s) orally once a day Taking FAMOTIDINE 20 mg tablet 1 tab(s) orally 30 minutes prior to SCIT Taking SIT (TRADITIONAL) variable see record per schedule SC per schedule Taking PATADAY TWICE A DAY RELIEF 0.1% solution 1 gtt in each affected eye 2 times a day Taking Wegovy 1 MG/0.5ML Solution Auto-injector 0.5 mL Subcutaneous Taking busPIRone HCl 10 MG Tablet 1 tab(s) orally 2 times a day Taking Singulair 10 MG Tablet 1 tab(s) orally 30 minutes before allergy shots Taking Auvi-Q 0.3 MG/0.3ML Solution Auto-injector as directed intramuscularly once Taking Nasacort Allergy 24HR 55 MCG/ACT Aerosol 2 spray(s) intranasally once a day Taking Fexofenadine HCl 180 MG Tablet 1 tab(s) orally once a day Taking Famotidine 20 MG Tablet 1 tab(s) orally 30 minutes prior to SCIT Not-Taking/PRNmetFORMIN HCl 500 MG Tablet 1 tab(s) orally 2 times a day Not-Taking/PRN metFORMIN HCl 500 MG Tablet 1 tab(s) orally 2 times a day Objective: * Vitals: Assessment: * Assessment: 1. A llergic rhinitis due to pollen - J30.1 (Primary) 2 . O ther allergic rhinitis - J 3 . A llergic rhinitis due to animal (cat) (dog) hair and dander - J30.81 4 . O ther chronic allergic conjunctivitis - H10.45 Plan: * Treatment: * Procedure Codes: 9 5117 IMMUNOTHERAPY INJECTIONS * Follow Up: 1 Week * Billing Information: * Visit Code: * Procedure Codes: 41464 IMMUNOTHERAPY INJECTIONS. * ICE MAKER Sign off status: Completed true * Provider: Esau Garcia MD Date: 0 01/27/2025 Generated for Jas lara/Lyle/Dioneitting on: 0 03/05/2025 10:04 AM CDT History [...]
--- OUTSIDE RECORDS SUMMARY | 2025-03-05 10:06 | XMS_ITS ---
Author Organization [facility] Address [address] [place] [address] Care Team Providers Care Aerial Erector Name Role Phone Mandy Dooley Primary Care Provider Unavaila Mable Beckman Unavailable [phone] Blayne Garcia Unavailable [phone] REASON FOR VISIT SCIT - Traditional Schedule Allergy Immunotherapy Medications Medication SIG (Take, Route, Frequency, Duration) Notes Start Date End Date Status Auvi-Q 0.3 MG/0.3ML as directed intramuscularly once for 30 day(s) Active Singulair 10 MG 1 tab(s) orally 30 minutes before allergy shots for 30 day(s) Active Famotidine 20 MG 1 tab(s) orally 30 minutes prior to SCIT Active Fexofenadine HCl 180 MG 1 tab(s) orally once a day Active Nasacort Allergy 24HR 55 MCG/ACT 2 spray(s) intranasally once a day Active metFORMIN HCl 500 MG 1 tab(s) orally 2 t imes a day Not-Taking busPIRone HCl 10 MG 1 tab(s) orally 2 ti mes a day Active Wegovy 1 MG/0.5ML 0.5 mL Subcutaneous Active PATADAY TWICE A DAY RELIEF 0.1% 1 gtt in each affected eye 2 times a day Active SIT (TRADITIONAL) variable per schedule SC per schedule for to be determined Active SINGULAIR 10 mg 1 tab(s) orally 30 minutes before allergy shots for 30 day(s) Active FAMOTIDINE 20 mg 1 tab(s) orally 30 minutes prior to SCIT Active FEXOFENADINE HYDROCHLORIDE 180 mg 1 tab(s) orally once a day Active NASACORT ALLERGY 24HR 55 mcg/inh 2 spray(s) intranasally once a day Active AUVI -Q 0.3 mg as directed intramuscularly once for 30 day(s) Active METFORMIN 500 mg 1 tab(s) orally 2 ti mes a day Active BUSPIRONE 10 mg 1 tab(s) orally 2 ti mes a day Active ALBUTEROL (EQV-PROAIR HFA) 90 mcg/inh 2 puff(s) inhaled every 6 hours Active Encounters Encounter Location Date Provider Diagnosis [facility] [address] [place] [address] 02/26/2025 Blayne Garcia Allergic rhinitis due to pollen J30.1 ; Other allergic rhinitis J30.89 ; Allergic rhinitis due to animal (cat) (dog) hair and dander J30.81 and Other chronic allergic conjunctivitis H10.45 Assessments Encounter Date Diagnosis (ICD Code) Assessment Notes Treatment Notes Treatment Clinical Notes Section Notes 02/26/2025 Allergic rhinitis due to pollen (ICD-10 - J30.1) 02/26/2025 Other allergic rhinitis (ICD-10 - J30.89) 02/26/2025 Allergic rhinitis due to animal (cat) (dog) hair and dander (ICD-10 - J30.81) 02/26/2025 Other chronic allergic conjunctivitis (ICD-10 - H10.45) Plan Of Treatment Next Appt Details Follow Up: 1 Week, Reason: Provider Name:Mable Scott , 03/16/2025 09:30:00 AM, [address] [place], [place] [address], [address], Provider Name:Blayne Garcia , 03/26/2025 04:40:00 PM, [address] [place], [place] [address] [place], [address], Progress Notes * Eva DOHERTY: 7 (39 yo F)Acc No.[id number]:02/26/2025 SCIT-Aeroallergen Patient: Regine SONI Provider: Esau Garcia MD :1985 A ge:39 Y S ex:Female Date:02/26/2025 Address:[facility] [address] [facility] Pcp:Mandy Dooley Subjective: * Chief Complaints: * [...] Information: * Visit Code: * Procedure Codes: 96992 IMMUNOTHERAPY INJECTIONS. * Sign off status: Completed true * Provider: Esau Garcia MD Date: 0 02/26/2025 Generated for Jas lara/Lyle/Dioneitting on: 0 03/05/2025 10:05 AM CDT History and Physical Notes * [...]
[2025-03-05 10:29] LABS: Anion Gap 11 mmol/L (4-12); Blood Urea Nitrogen 14 mg/dL (7-17); Calcium 9.4 mg/dL (8.4-10.2); Carbon Dioxide 25 mmol/L (22-30); Chloride 104 mmol/L (98-107); Estimated Glomerular Filt Rate > 60; Glucose 98 mg/dL (65-110); Potassium 4.7 mmol/L (3.4-5.0); Sodium 140 mmol/L (137-145)
== END 2025-03-05 09:34 | disposition home or self-care (01) ==
LOC: ANHSURGERY 09:39
PROVIDERS: Anesthesiology; PCP Hospitalist; Visit Provider Obstetrics & Gynecology
DX: N94.89 Other specified conditions associated with female genital organs and menstrual cycle (principal); E11.9 Type 2 diabetes mellitus without complications
CPT/HCPCS: 36415; 80048; 86850; 86900; 86901; 93005

== ENCOUNTER 2025-03-10 02:09 | Day surgery (SDC) | payer OTHER, SELFPAY ==
[2025-03-02 15:18] VITALS: BMI 23.9
--- NOTE | 2025-03-02 15:25 | PC.NURSE ---
Report to the Outpatient Waiting Room, entrance under the green pavilion located off [facility], at time _0600_ on date _[id number]_. Planned Procedure Time: _0730_.? Time changes happen often and if your time is changed the preop area will call you the afternoon before. - You and your visitor will be asked to self-screen and do not enter if you have any COVID symptoms. Please call surgeon if you need to reschedule. - A mask is optional within the hospital at this time. Patients may have clear liquids (water, carbonated beverages, clear teas, apple juice) until 3 hours prior to surgery with a maximum of 20 ounces. - No food from midnight until time of surgery and no smoking, or chewing tobacco (or any form of nicotine). No chewing gum, candy or mints. Take only the following medications with a SIP of water on the morning of surgery: ___Buspirone and nasal spray____ DO NOT STOP ANY OF YOUR OTHER PRESCRIPTION MEDICATIONS PRIOR TO SURGERY EXCEPT THE FOLLOWING Hold all vitamins and supplements for 3 days per anesthesiologist. Medications to discontinue per physician Date to take last vidz___[id number]____ Please no make-up, nail chinese, hairspray, perfume, deodorant, or body powder the day of surgery.? No jewelry (including any body piercings) or valuables the day of surgery, leave them at home.? Please take a shower or bath the night before, or the morning of, surgery with an antibacterial soap.? Wear comfortable, loose fitting clothing.? - Jewelry must be removed prior to entering the operating room.? Rings and piercings that are not removed may be cut off. - The hospital will not accept responsibility for valuables.? - Please leave all valuables, including medications, at home the day of surgery. If you are going home after surgery, a licensed bulk driver must drive you home.? - NO public transportation without another adult if you receive anesthesia. - We recommend that an adult stay with you for 24 hours following discharge. - We also recommend that you do not drive, make important decision, drink alcoholic beverages, or take any drugs that were not prescribed by your health care provider for at least 24 hours after your discharge time. Follow any additional instructions given to you from your surgeon. Telephone instructions given to __Regine___and asked if any additional questions and then verbalized understanding. Patient advised to call surgeon office or pre surgery nurse liaison [phone] if any additional questions.
[2025-03-10] VITALS (11 sets, daily range): BP systolic 95–123; BP diastolic 58–77; PULSE 72–106; RESP 11–20; TEMP 36.2–36.9; O2SAT 95–100
--- OUTSIDE RECORDS SUMMARY | 2025-03-10 02:12 | XMS_ITS | Clinical Summary ---
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
--- OUTSIDE RECORDS SUMMARY | 2025-03-10 02:12 | XMS_ITS | Clinical Summary ---
Author Organization [facility] Address [address] [place] [address] Care Team Providers Care Offset Lithographic Press Setter Name Role Phone Mandy Dooley MD Primary [...] complication Assessment & Plan (11/17/2024 9:32 AM INFORMATION CONSULTANT): controlled Continue albuterol as needed Assessment & Plan (01/29/2024 8:32 AM INFORMATION CONSULTANT): Stable Continue albuterol as needed Assessment & Plan (08/27/2023 10:12 AM CDT): Stable Continue albuterol as needed Environmental allergies 08/27/2023 Assessment & Plan (11/17/2024 9:32 AM INFORMATION CONSULTANT): Following with engineering program manager Assessment & Plan (01/29/2024 8:32 AM INFORMATION CONSULTANT): Stable Following with engineering program manager On kristine & nasonex Assessment & Plan (08/27/2023 10:18 AM CDT): Stable Following with engineering program manager On kristine & nasonex Vaginal itching 07/07/2023 Assessment & Plan (07/07/2023 6:26 PM CDT): PO diflucan 150 mg once a week x 3 weeks Nystatin powder as prescribed Clean area clean, dry, avoid moisture accumulation Yeast culture PCOS (polycystic ovarian syndrome) 04/11/2021 Assessment & Plan (11/17/2024 9:45 AM INFORMATION CONSULTANT): Following with gynecology On wegovy Assessment & Plan (01/29/2024 8:39 AM INFORMATION CONSULTANT): Following with gynecology Continue metformin, adjust as needed to avoid diarrhea Assessment & Plan (08/27/2023 10:19 AM CDT): Following with gynecology On metformin, could decrease to 500mg twice a day if persistent side effects Assessment & Plan (04/11/2021 5:33 PM CDT): Following with gynecology, On clomid & metformin Annual physical exam 07/06/2020 Assessment & Plan (11/17/2024 9:44 AM INFORMATION CONSULTANT): Reviewed PMH & Phq reviewed Reviewed medications and supplements HCM: orders placed as needed Assessment & Plan (08/27/2023 10:02 AM CDT): Reviewed PMH & Phq reviewed Reviewed medications and supplements HCM: orders placed as needed Assessment & Plan (08/31/2022 4:31 PM CDT): Former smoker PAP: UTD, follows with gynecology at [facility] BP wnl Body mass index is 30.59 kg/m . Discussed diet and exercise Feels safe at home Discussed skin cancer prevention and screening Flu vaccine today, otherwise UTD Assessment & Plan (08/12/2021 10:53 AM CDT): Former smoker PAP: UTD, follows with gynecology at [facility] BP wnl PHQ Screening PHQ-2 Total [...] day Assessment & Plan (01/16/2025 9:33 AM INFORMATION CONSULTANT): GAD7: 16, uncontrolled Increase buspar to 15mg three times a day Assessment & Plan (11/17/2024 9:45 AM INFORMATION CONSULTANT): GAD7: 9, uncontrolled Increase buspar to 20mg twice a day Assessment & Plan (01/29/2024 8:30 AM INFORMATION CONSULTANT): Improved Continue buspar 15mg twice a day Assessment & Plan (08/27/2023 10:21 AM CDT): Uncontrolled Increase buspar to 15mg twice a day Continue regular exercise Assessment & Plan (12/06/2022 2:16 PM INFORMATION CONSULTANT): Uncontrolled with recent return to the office Reasonable accomodation paperwork filled out in support of returning to partial [employer] work which she did well with previously [...] Description 02/27/2025 11:30 AM CDT Office Visit [facility] at [address] [address] Mandy Dooley MD SYLVIA (generalized anxiety disorder) (Primary Dx) 01/16/2025 9:15 AM INFORMATION CONSULTANT Office Visit [facility] at [address] [address] Mandy Dooley MD SYLVIA (generalized anxiety disorder) [...] on file Legal Sex Female 7:44 PM INFORMATION CONSULTANT Gender Identity Not on file Sexual Orientation [...] complete this topic Varicella Vaccines Discontinued Insurance [employer] Care Teams Offset Lithographic Press Setter Relationship Specialty Start Date End Date Mandy Dooley MD PCP - General Family Medicine 07/02/20
--- OUTSIDE RECORDS SUMMARY | 2025-03-10 02:12 | XMS_ITS | Clinical Summary ---
Author Organization [facility] Address [address] [place] [address] Care Team Providers Care Recovery Unit Operator Name Role Phone Shaquille Regalado MD Primary [...] 5 Years) and At-Risk Patients (6 to 49 Years) Aged Out No longer eligible b ased on patient's age to complete this topic RSV Immunizations Under 20 Months Aged Out No longer eligible based on patient's age to complete this topic Care Teams Recovery Unit Operator Relationship Specialty Start Date End Date Shaquille Regalado MD PCP - General 01/07/17
--- OUTSIDE RECORDS SUMMARY | 2025-03-10 02:12 | XMS_ITS | Data Portability ---
Author Organization [facility] Address [address] [place] [address] [place] [address] Care Team Providers Care Dental Practice Manager Name Role Phone ALLISON SWEET Primary Care Provider [phone] Assessment No assessment recorded. Plan of Treatment [...] recorded. Imaging US, pelvis 2024 025 [email or web address] [address], [address], [place], [address], 12/24/2024 08:27:19 US, transvagi nal 2024 025 [email or web address] [address], [address], [place], [address], 12/24/2024 08:27:19 Medication Orders ondansetr on 4 mg disintegr ating tablet 2023 024 [id number], [address], [place], [id number], 08/29/2024 10:44:38 Patient TargetsNo targets recorded. Patient InstructionsNo instructions recorded. Reason for Referral None Reported. Results Created Date Observation Date Name Description Value Unit Range Abnormal Flag Note LastModifiedBy Organization Detail LastModifiedTime 12/22/19 25 12/22/2024 US, pelvi s No observ ation record ed. [email or web address] [address], [place], [address], 12/22/2024 17:59:18 12/22/19 25 12/22/2024 US, trans vagin al No observ ation record ed. [email or web address] [facility] [address], [place], [address], 12/22/2024 17:59:26 12/22/19 25 12/22/2024 US, pelvi s No observ ation record ed. [address], [place], [address], 12/26/2024 11:07:19 01/06/20 25 10/16/2024 CT, abdom en + pelvi s, w/ contr ast No observ ation record ed. [email or web address] [facility] [address] [address], [place], [address], 01/06/2025 14:36:57 Result Notes None recorded. Problems Name Problem SNOMED Code Status Onset Date Resolution Date Notes Provider Name and Address Organization Details Recorded Time Placenta previa with hemorrha ge - not delivere d [id number] Completed 201301/11/2021 Hemorrha ge from placenta previa, antepart um;Pract ice ID: 0001 Shefali howard, [facility] 13:14:01 Primigra katarzyna [id number] Completed 201301/11/2021 Supervis ion of normal first pregnanc y;Practi ce ID: 0001 [facility] 13:14:16 Routine antenata l care Completed 201301/11/2021 Supervis ion of other normal pregnanc y;Practi ce ID: [address] null, [facility] 13:14:21 Placenta previa without hemorrha ge - not delivere d [id number] Completed 201301/11/2021 Placenta previa without hemorrha ge, antepart um;Pract ice ID: 0001 Shefali Ariana howard, [facility] 13:14:05 Placenta previa without hemorrha ge - delivere d [id number] Completed 201301/11/2021 Placenta previa without hemorrha ge, with delivery ;Practic e ID: 0001 Shefali Ariana howard, [facility] 13:14:03 Dyspareu kavon [id number] Completed 201101/11/2021 Dyspareu kavon;Prac xu ID: 0001 Shefali howard, [facility] 13:13:39 Irregula r periods [id number] Completed 201301/11/2021 Irregula r menstrua l cycle;Pr actice ID: 0001 Shefali howard, [facility] 13:13:54 Pregnanc y test negative [id number] Completed 201301/11/2021 Negative Pregnanc y Test;Pra ctice ID: 0001 Shefali Ariana howard, [facility] 13:14:11 Speciali zed medical examinat ion Completed 201301/11/2021 Routine gynecolo gical examinat ion;Prac xu ID: 0001 Shefali howard, [facility] 13:14:32 Screenin g for malignan t neoplasm of cervix Completed 201301/11/2021 Pap Smear;Pr actice ID: 0001 Shefali howard, [facility] 13:14:23 Examinat ion for accident Completed 201301/11/2021 Observat ion followin g other accident ;Practic e ID: [address] null, [facility] 13:13:41 Ultrason ography Completed 201301/11/2021 Antenata l screenin g for malforma tion using ultrason ics;Prac xu ID: [address] lee, [facility] 13:14:34 Antenata l screenin g Completed 201301/11/2021 Antenata l screenin g for malforma tion using ultrason ics;Prac xu ID: [address] null, [facility] 13:13:30 Congenit al malforma tion [id number] Completed 201301/11/2021 Antenata l screenin g for malforma tion using ultrason ics;Prac xu ID: [address] lee, [facility] 13:13:[address] Concept Completed 201701/11/2021 Encntr for it associate exam (general ) (routine ) w/o abn findings ;Recorde d Elsewher e: No Locat ion: [facility] S ource: EHR Hood Maker susan: N Heenati ce ID: 0001 Jan lable Time: 11:30:00 AM Shefali howard [facility] 1 13:14:30 Postoper ative follow-u p visit Completed 201301/11/2021 Post operativ e follow-u p;Record ed Elsewher e: No Locat ion: [facility] S ource: EHR Hood Maker susan: N Heenati ce ID: 0001 Jan lable Time: 10:30:00 AM Shefali howard [facility] 1 13:14:07 Uses IUD (intraut erine device) contrace ption [id number] Completed 201401/11/2021 Surveill ance of intraute rine contrace ptive device;R ecorded Elsewher e: No Locat ion: [facility] S ource: EHR Hood Maker susan: N Heenati ce ID: 0001 Jan lable Time: 10:15:00 AM Shefali howard [facility] 1 13:13:57 Insertio n of intraute rine contrace ptive device Completed 201401/11/2021 INSERTIO N OF IUD;Anderson rded Elsewher e: No Locat ion: [facility] S ource: EHR Hood Maker susan: N Heenati ce ID: 0001 Jan lable Time: 02:00:00 PM Shefali howard [facility] 1 13:13:49 Disorder of hair AND/OR hair follicle Completed 201301/11/2021 Follicul itis;Rec orded Elsewher e: No Locat ion: [facility] S ource: EHR Hood Maker susan: N Heenati ce ID: 0001 Jan lable Time: 11:00:00 AM Shefali howard [facility] 1 13:13:37 Pregnanc y test positive [id number] Completed 201301/11/2021 Pregnanc y examinat ion or test, positive result;R ecorded Elsewher e: No Locat ion: [facility] N Heenati ce ID: 0001 Jan lable Time: 11:00:00 AM Shefali howard [facility] 13:14:14 Female genital organ symptoms 108691318 Completed 201101/11/2021 Unspecif ied symptom associat ed with female genital organs;P ractice ID: 0001 Shefali howard [facility] 13:13:[address] Concept Completed 201801/11/2021 Encntr for general adult medical exam w/o abnormal findings ;Recorde d Elsewher e: No Locat ion: Evaristo caraballo [facility] S ource: EHR Hood Maker susan: N Heenati ce ID: 0001 Jan lable Time: 08:30:00 AM Shefali howard [facility] 13:14:28 Postpart um care Completed 201301/11/2021 Postpart um follow-u p;Record ed Elsewher e: No [facility] S ource[facility]: N Heenati ce ID: 0001 Jan lable Time: 11:00:[address] [facility], [facility] 13:14:10 Body mass index 30+ - obesity 529936570 Completed 201801/11/2021 Body mass index (BMI) 30.0-30. 9, adult;Re corded Elsewher e: No Locat ion: [facility] S ource: [facility]: N Heenati ce ID: 0001 Jan lable Time: 08:30:00 AM Shefali howard [facility] 13:13:33 Placenta previa with hemorrha ge [id number] Completed 201301/11/2021 Partial placenta previa;R ecorded Elsewher e: No Locat ion: [facility] S ource: EHR Hood Maker susan: N Heenati ce ID: 0001 Jan lable Time: 02:00:00 PM Shefali howard [facility] 13:13:59 Removal of intraute rine device Completed 201501/11/2021 REMOVAL OF IUD;Anderson rded Elsewher e: No Locat ion: [facility] S ource: EHR Hood Maker susan: N Heenati ce ID: 0001 Jan lable Time: 03:45:00 PM Shefali howard [facility] 13:14:19 Single live [id number] Completed 201301/11/2021 Mother with single liveborn ;Practic e ID: 0001 Shefali howard [facility] 13:14:25 Problem Notes None recorded. Procedures Surgical History Date Name Laterality Status Provider Name and Address Organization Details Recorded Time 2023 intrauterine artificial insemination completed Shefali Lane [facility] 03/05/2024 13:46:24 2023 intrauterine artificial insemination completed Shefali Lane [facility] 02/08/2024 14:00:27 2022 Date of Last Pap Smear completed Callie Wharton [facility] 05/01/2024 14:39:27 [address] [facility] 04/05/2023 18:15:53 2013 Caesarean Section completed Dana Gilbert [facility] 01/03/2025 12:33:12 2013 delivery completed Norma Hernandez [facility] 09/24/2020 10:39:44 [address] [facility] 01/11/2021 13:16:10 Imaging Results Imaging Date Name Status LastModified by Organization Details LastModified Time 12/22/2024 US, pelvis completed [email or web address] [address], [place], [address], 12/22/2024 17:59:18 12/22/2024 US, transvaginal completed [email or web address] Evaristo caraballo [address], [place], [address], 12/22/2024 17:59:26 12/22/2024 US, pelvis completed [email or web address] [address], [place], [address], 12/26/2024 11:07:19 10/16/2024 CT, abdomen + pelvis, w/ contrast completed [email or web address] [facility] [address] [address], [place], [address], 01/06/2025 14:36:57 Procedure Notes None recorded. Medical Equipment None Reported. Allergies Allergen ID Allergen Name Allergen Category Reaction Reaction Severity Criticality Documentation Date Start Date Code Code System Note Provider Name and Address Organization Details Recorded Time 2543 cat dander environme nt Not available Not available Not available 09/24/2020 08272 LENOJennifer Norma howard [facility] 0 10:39:07 2544 POLLEN EXTRACTS environme nt,medica tion Not available Not available Not available 09/24/2020 55782 6 RxNorm Norma howard, [facility] 0 10:39:13 2545 ragweed pollen environme nt Not available Not available Not available 09/24/2020 98315 BLANCA Norma howard [facility] 0 10:39:20 Medications Name Sig Start [...] Prescrib ed Elsewher e: No Locat ion: [facility] M odify By: [email or web address] trick En counter DateTime : 04/08/20 12 12:30:00 PM Not Available Not Available Not Available Mirena 21 mcg/24 hr (up to 8 years) 52 mg intrauter ine device 04/14 completed Prescrib ed Elsewher e: Yes [facility] od[facility] By: kmkirkpa trick En [...] Prescrib ed Elsewher e: Yes Loca tion: [facility] odify By: kmkirkpa trick En counter [...] Prescrib ed Elsewher e: Yes Loca tion: [facility] odify By: cmedical Encount er DateTime : 11/11/20 14 11:00:00 AM Not Available Not Available Not Available Zyrtec 10 mg tablet take 1 tablet by oral route every day 11/11 completed Prescrib ed Elsewher e: Yes Loca tion: Evaristo caraballo [facility] odify By: cmedical Encount er DateTime [...] Prescrib ed Elsewher e: No [facility] By: kmkimary lou trick En counter DateTime : 10/12/20 14 02:30:00 PM Not Available Not Available Not Available Nasonex 50 mcg/actua tion [place] spray 2 spray by intranas al route every day in each nostril 03/30 completed Prescrib ed Elsewher e: Yes [facility] odify By: kmkirkpwinter trick En counter DateTime [...] Prescrib ed Elsewher e: No [facility] By: kmkireidkpwinter trick En counter DateTime : 08/17/20 14 02:07:03 PM Not Available Not Available Not Available norethind valerie (contrace ptive) 0.35 mg tablet take 1 tablet by oral route every day 01/08 completed Prescrib ed Elsewher e: No Locat ion: Evaristo caraballo [facility] odify By: kmkirkpa trick En counter [...] ed Elsewher e: No Locat ion: Evaristo [facility] odify By: kmkirkpa trick En counter DateTime : 04/08/20 12 12:30:00 PM Not Available Not Available Not Available Aurea-D 24 Hour 180 mg-240 mg tablet,ex tended release take 1 tablet by oral route every day on an empty stomach with a glass of water 03/30 completed Prescrib ed Elsewher e: No Locat ion: Evaristo caraballo [facility] odify By: kmkirkpa trick En counter DateTime : 04/08/20 12 12:30:00 PM Not Available Not Available Not Available Aurea Allergy 01/11 completed Not Available Not Available Not Available Blisovi Fe 1.5/30 (28) 1.5 mg-30 mcg (21)/75 mg (7) tablet TAKE 1 TABLET BY ORAL ROUTE EVERY DAY 01/11 completed Prescrib ed Elsewher e: No Locat ion: [facility] odify By: donnell [email or web address] DateTime : 04/11/20 19 08:30:00 AM Not Available Not Available Not Available One Daily 27 mg iron-800 mcg tablet take 1 tablet by oral route every day 04/14 completed Prescrib ed Elsewher e: Yes Loca tion: [facility] odify By: kmkirkpa trick En counter [...] Updated DateTime 05/30/2024 162.56 cm 28.6 kg/m2 87371.49 g 122 mm[Hg] 76 mm[Hg] Callie Wharton [place] [facility] 4 10:49:24 Date Recorded Body height Body mass index (BMI) Body weight Systolic blood pressure Diastolic blood pressure Provider Name and Address Organization Details Last Updated DateTime 08/29/2024 162.56 cm 26.3 kg/m2 45683.63 g 104 mm[Hg] 69 mm[Hg] Shefali Lane [facility] 4 10:38:28 Date Recorded Body height Body mass index (BMI) Body weight Systolic blood pressure Diastolic blood pressure Provider Name and Address Organization Details Last Updated DateTime 01/03/2025 162.56 cm 25.2 kg/m2 00561.08 g 101 mm[Hg] 71 mm[Hg] Dana Gilbert [facility] 5 12:36:04 Date Recorded Body height Body mass index (BMI) Body weight Systolic blood pressure Diastolic blood pressure Provider Name and Address Organization Details Last Updated DateTime 03/03/2025 162.56 cm 24.2 kg/m2 12043.52 g 108 mm[Hg] 72 mm[Hg] Callie Dio [facility] 5 10:49:39 Social History Question Answer Notes LastModified by Organizat ion Details LastModified Time Tobacco Smoking Status Former Smoker Reji howard, [facility] 04/06/2023 11:01:25 Do You Have An Advance Directive? No [email or web address] Information not available 08/30/2021 What Is Your Level Of Alcohol Consumption? Occasional [email or web address] Information not available 09/27/2020 If You Are , What Was Your Level Of Alcohol Consumption Prior To ? None Information not available 04/06/2023 How Many Years Have You Consumed Alcohol? 12 [email or web address] Information not available 08/30/2021 Are You Blind Or Do You Have Difficulty Seeing? No [email or web address] Information not available 01/25/2021 What Is Your Level Of Caffeine Consumption? Moderate [email or web address] Information not available 08/30/2021 How Much Tobacco Do You Chew? None [email or web address] Information not available 08/30/2021 In The 14 Days Before Symptom Onset, Have You Had Close Contact With A Laboratory-confir med COVID-19 While That Case Was Ill? No [email or web address] Information not available 01/25/2021 In The 14 Days Before Symptom Onset, Have You Had Close Contact With A Person Who Is Under Investigation For COVID-19 While That Person Was Ill? No [email or web address] Information not available 01/25/2021 Have You Been To An Area Known To Be High Risk For COVID-19? No [email or web address] Information not available 01/25/2021 Are You Deaf Or Do You Have Serious Difficulty Hearing? No [email or web address] Information not available 01/25/2021 What Type Of Diet Are You Following? REGULAR [email or web address] Information not available 01/25/2021 What Is The Highest Grade Or Level Of School You Have Completed Or The Highest Degree You Have Received? [id number] [email or web address] Information not available 08/30/2021 What Is Your Occupation? [employer] Employee [email or web address] Information not available 08/30/2021 Have You Ever Been Counseled For Unhealthy Alcohol Use? No [email or web address] Information not available 04/06/2023 Do You Use Protection During Sex? No [email or web address] Information not available 08/30/2021 Do You Use Your Seat Belt Or Car Seat Routinely? Yes [email or web address] Information not available 01/25/2021 Do You Have Smoke And Carbon Monoxide Detectors In Your Home? Yes [email or web address] Information not available 01/25/2021 How Much Tobacco Do You Smoke? No Information not available 08/30/2021 Do You Feel Stressed (tense, Restless, Nervous, Or Anxious, Or Unable To Sleep At Night)? [id number] [email or web address] Information not available 01/25/2021 Do You Use Any Illicit Or Recreational Drugs? No [email or web address] Information not available 01/11/2021 Do You Use Sunscreen Routinely? Yes Information not available 01/25/2021 Has Tobacco Cessation Counseling Been Provided? No [email or web address] Information not available 04/06/2023 Have You Used IV Drugs? No [email or web address] Information not available 08/30/2021 Do You Or Have You Ever Used Any Other Forms Of Tobacco Or Nicotine? No Information not available 04/06/2023 Sex: Unknown Functional Status Question Answer Note LastModified by Organizat ion Details LastModified Time Do you have difficulty walking or climbing stairs? No [email or web address] Information not available 02/08/2024 Are you able to walk? YESWOREST [email or web address] Information not available 01/25/2021 Are you able to care for yourself? Yes [email or web address] Information not available 02/08/2024 Do you have difficulty dressing or bathing? No [email or web address] Information not available 02/08/2024 What is your exercise level? Occasional [email or web address] Information not available 08/30/2021 Mental Status None recorded. Family History Relationship Description Onset Age of this Age Resolved Age Notes LastModified by Organization Details LastModified Time Mother Uterine leiomyoma Not available 2024 10:17:29 Mother Uterine fibroids affecting [email or web address] Not available 2024 10:17:29 Maternal Grandmother Uterine leiomyoma [email or web address] Not available 2024 10:17:29 Maternal Grandmother Diabetes mellitus [email or web address] Not available 04/06 11:21:14 Maternal Grandmother Uterine fibroids affecting Not available 2024 10:17:29 Notes:Maternal grandmother: fibroids, Diabetes mellitus Mother: Fibroids Medical History Condition Response Allergies (Food, seasonal, environmental ) Y Other Y Breast Cancer N Drug/Latex Allergies/Reactions N Blood Transfusion N Dermatologic Disorders N Lung Disease N Defects or Inherited Disease N Breast Problem N Gestational Diabetes N Hematologic disorders N Anesthesia Complications N History of STI N Deep Vein Thrombosis N Polycystic ovary syndrome Y Anxiety Disorder Y Autoimmune disease N Arthritis N Infertility N Polyps N Acid Reflux (GERD) N History of abnormal pap N Cancer N Stroke N Varicosities N Neurologic/Epilepsy N Endometriosis N High Cholesterol N Headaches N Fibromyalgia N Kidney Disease N Heart Problems N Kidney or Bladder Problems N Thyroid Problems N GI Problems N Eating Disorder N Anemia N Art (IVF or FET) Y Psychiatric Illness N Ovarian Cancer N Diabetes N Pulmonary (TB, Asthma) N Hepatitis/Liver Disease N Eczema N Urinary Tract Infection N Abuse/Domestic Violence N Asthma Y Trauma/Violence N Depression/ depression N Heart Disease N Pre-Eclampsia N Hypertension N Osteoporosis N Thrombophilias N Gynecological History Statement/Question Response Flow Moderate [...] SNOMED-CT Code Diagnosis ICD10 Code Diagnosis Note [id number] Elva Gonzalez [facility] [address] [address] 09/27/2020 09:38:51 09/27/2020 10:14:59 Gynecologic examination 66778390 Z01.419 Take Calcium with Vitamin D 1200mg [...] today's plan if desired. Trying to conceive 81623 9001 Z31.9 Pt has been trying for about 1 year. Using fertility tracker and ovulation kits. Cycles regular and normal. Timing of intercours e may be a contributi ng factor d/t working shift work. Discussed basics of timing and frequency of intercours e. Pt will give it a few more months and if no will consider infertilit y visit. [id number] Monica Freid [facility] [address],[place] [address] 01/11/2021 12:54:13 01/12/2021 15:20:15 Irregular periods 07964591 N92.6 Hirsutism 280549723 L68. 0 Acne 76276483 L70.9 Trying to conceive 10193 9001 Z31.9 [id number] [facility] [address],[place] [address] 01/24/2021 09:27:04 01/24/2021 14:04:25 Irregular periods 35683557 N92.6 L68.0 N97.9 [id number] Monica Fried [facility] [address],[place] [address] 01/25/2021 12:36:43 01/26/2021 14:19:01 Polycystic ovary syndrome 404639615 E28.2 Trying to conceive 98838 9001 Z31.9 [id number] [facility] [address],[place] [address] 08/25/2021 09:28:10 08/25/2021 13:37:35 Abnormal uterine bleeding 5434645158 9100 N93.8 [id number] Monica Fried [facility] [address],[place] [address] 08/30/2021 12:33:55 08/31/2021 13:34:36 Anovulation 53025124 N97.0 Irregular periods 432843 07 N92.6 [id number] Callie Wharton [facility] [address],[place] [address] 03/25/2023 20:09:26 03/25/2023 20:10:20 [id number] [facility] [address],[place] [address] 04/06/2023 11:01:03 04/06/2023 14:10:48 Gynecologic examination 91193814 Z01.419 Z11.51 [id number] [facility] [address],[place] [address] 02/07/2024 09:25:20 02/07/2024 10:23:16 Female infertility 4263221 N97.[id number] [facility] [address],[place] [address] 02/07/2024 10:45:23 02/08/2024 08:51:19 Trying to conceive 231998764 Z31.9 [id number] Monica Fried [facility] [address],[place] [address] 02/08/2024 13:29:26 02/08/2024 15:37:31 Artificial insemination 53021811 Z31.83 [id number] [facility] [address],[place] [address] 03/04/2024 14:33:36 03/04/2024 15:43:03 Female infertility 2197330 N97.[id number] [facility] [address],[place] [address] 03/04/2024 16:06:33 03/04/2024 16:24:52 Trying to conceive 839923200 Z31.9 [id number] Monica Fried [facility] [address],[place] [address] 03/05/2024 13:17:14 03/05/2024 14:21:52 Routine care 234281122 Z34.90 Artificial insemination 09861740 Z31.83 call with cycle or +UPT [id number] Joan Malone [facility] [address],[place] [address] 05/01/2024 14:28:48 05/01/2024 15:22:43 Polycystic ovary syndrome 156541746 E28.2 E88.819 Counseled on OZEMPIC medication R/B's, [...] counseling and review of plan of care. [id number] [facility] [address],[place] [address] 05/30/2024 10:41:41 05/30/2024 11:11:57 Polycystic ovary syndrome 925627472 E28.2 continue ozempic on current dose, ok for refillcont inue active lifestyle and healthy diet Female infertility 03433 08 N97.9 monitor cycles Insulin resistance 46285 5000 E88.819 Diarrhea 14611022 R19.7 resolved after discontinu ed metformin continue to monitor for GI sxs [id number] [facility] [address],[place] [address] 08/29/2024 10:25:46 08/29/2024 11:04:58 Nausea and vomiting 82157589 R11.2 Obesity 803235104 E66.9 continue wegovy weekly f/u 12/2024 med check or sooner if needed [id number] Jazmine Ceballos [facility] [address],[place] [address] 12/22/2024 09:30:20 12/22/2024 10:21:56 CT of pelvis abnormal [id number] 8658014 R93.89 [id number] Jordan Prabhakar MD [facility] [address],[place] [address] 01/03/2025 12:27:33 01/05/2025 11:46:39 Pelvic congestion syndrome 18766251 N94.89 39-year-ol d female pelvic pain and [...] care in total, including documentat ion. 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 05/30/2024 11:11:27 08/29/2024 text/html paulino med check , doing well bmi 26, more nausea than before, losing weight slowly, less pain in joints, more energy, working out 6 x a week, would like to continue [address], [place], [address], [facility] 08/29/2024 11:03:41 01/03/2025 text/html 39-year-old fema [...] documentation. Jordan Prabhakar MD [address], [place], [address], [facility] 01/03/2025 13:34:45 03/03/2025 text/html This patient [...] infection. Jordan Prabhakar MD [address], [place], [address], [facility] 03/03/2025 13:52:45 OBGyn Episode Ob Episode Information Episode Created Date Number of Fetuses Patient Bloodtype Patient rh Status Prepregnancy Weight lbs Domestic Partner Domestic Partner Phone Father Name Pressurization Mechanic Status 09/27/20 20 1 CLOSED Fetus Data [...] Domestic Partner Domestic Partner Phone Father Name Pressurization Mechanic Status 03/31/20 24 1 CLOSED Fetus Data First Name Last Name Admitted to NICU Weight (g) Sex Living Outcome Pediatric Complications Fetus ID Race Codes Race Delivery Type , Spontane ous [id number] Gunner Calculation Initial Gunner Date Initial Exam [...]
--- OUTSIDE RECORDS SUMMARY | 2025-03-10 02:12 | XMS_ITS ---
Author Organization [facility] Address [address] [place] [address] Care Team Providers Care Farm Product Purchaser Name Role Phone Mandy Dooley Primary Care Provider Unavaila Mable Beckman Unavailable [phone] Blayne Garcia Unavailable [phone] REASON FOR VISIT SCIT - Traditional Schedule [...] Active Encounters Encounter Location Date Provider Diagnosis [facility] [address] [place] [address] 01/27/2025 Blayne Garcia Allergic rhinitis due to [...] Provider Name:Mable Scott , 03/16/2025 09:30:00 AM, [address] [place], [place] [address], [address], Provider Name:Blayne Garcia , 03/26/2025 04:40:00 PM, [address] [place], [place] [address], [address], Progress Notes * Eva DOHERTY: 7 (39 yo F)Acc No.[id number]:01/27/2025 SCIT-Aeroallergen Patient: Regine SONI Provider: Esau Garcia MD :1985 A ge:39 Y S ex:Female Date:01/27/2025 Address:[facility] [address] [facility] Pcp:Mandy Dooley Subjective: * Chief Complaints: [...] Information: * Visit Code: * Procedure Codes: 71061 IMMUNOTHERAPY INJECTIONS. * N BUILDING ENERGY ENGINEER Sign off status: Completed true * Provider: Esau Garcia MD Date: 0 01/27/2025 Generated for Jas lara/Lyle/Dioneitting on: 0 03/10/2025 02:12 AM CDT History and Physical Notes * [...]
--- OUTSIDE RECORDS SUMMARY | 2025-03-10 02:12 | XMS_ITS ---
Author Organization [facility] Address [address] [place] [address] Care Team Providers Care Forestry Instructor Name Role Phone Mandy Dooley Primary Care Provider Mable Dick Unavailable [phone] Blayne Garcia [phone] REASON FOR VISIT SCIT - Traditional Schedule Allergy Immunotherapy Encounters Encounter Location Date Provider Diagnosis [facility] [address] [place] [address] 01/26/2025 Blayne Garcia Allergic rhinitis due to [...] Name:Mable Scott , 03/16/2025 09:30:00 AM, [address] [place], [address], Provider Name:Blayne Garcia , 03/26/2025 04:40:00 PM, [address] [place], [address], Progress Notes * Regine DOHERTYDOB: 7 (39 yo F)Acc No.[id number]:01/26/2025 SCIT-Aeroallergen Patient: Regine SONI Provider: Esau Garcia MD :1985 A ge:39 Y S ex:Female Date:01/26/2025 Address:[address] [place], [place] [address] Pcp:Mandy Dooley Subjective: * Chief Complaints: * [...] Information: * Visit Code: * Procedure Codes: 87876 IMMUNOTHERAPY INJECTIONS. * Electronic signature of Mike Garcia MD, FAAAAI on 03/10/2025 at 02:12 AM CDT Sign off status: Pending * Provider: Esau Garcia MD Date: 0 01/26/2025 Generated for Jas lara/Lyle/Tammie on: 0 03/10/2025 02:12 AM CDT History [...]
--- OUTSIDE RECORDS SUMMARY | 2025-03-10 02:13 | XMS_ITS | Clinical Summary ---
Author Organization [facility] Address [address] [facility] [place] [address] Care Team Providers Care Loan Review Manager Name Role Phone Jules Regalado MD Primary Care Provider [phone] Source Comments [facility],non-owned Affiliates and Associated Physician Practices is amultiple site organization consisting of ambulatory clinics and hospital sitesin [place], [place], [place] and [place]. This disclosure is being madepursuant to the Care Everywhere program and may not contain all information available regarding this patient. Last updated 18.[facility] [employer] Allergies No known active allergies Medications * Be aware that medications may not be up to date on this document. Alwaysverify current medications with the patient. Norgestim-Eth Estrad Triphasic (ORTHO TRI-CYCLEN, 28, PO) Active Fexofenadine HCl (TIFFANIE PO) Active mometasone (NASONEX) 50 MCG/ACT nasal spray [place] 1 spray into each nostril 2 times daily Active ALBUTEROL SULFATE IN Active ciprofloxacin 0.3% (CILOXAN) 0.3 % ophthalmic solutionIndications :Other mucopurulent conjunctivitis of left eye 1 drop every 2 hours while awake x 2 days, then 1 drop every 4 hours while awake x 5 days. 1 bottles 8 Active Family History Medical History Relation Name Comments Negative Family History Father Negative Family History Mother Relation Name Status Comments Father Mother Social History Tobacco Use Types Packs/Day Years Used Date Smoking Tobacco: Never Smokeless Tobacco: Never Tobacco Cessation:Counseling Given: No Alcohol Use Standard Drinks/Week Comments No 0 (1 standard drink = 0.6 oz pur e alcohol) Comments No Sex and Gender Information Value Date Recorded Sex Assigned at Not on file Legal Sex Female 11:17 AM CDT Gender Identity Not on file Sexual [...] on patient's age to complete this topic Insurance ANTH Care Teams Loan Review Manager Relationship Specialty Start Date End Date Jules Regalado MD PCP - General Family Medicine 02/19/17
--- OUTSIDE RECORDS SUMMARY | 2025-03-10 02:13 | XMS_ITS | Referral Summary ---
Author Organization [facility] Address [address] [place] [address] Care Team Providers Care Dulite Machine Bluer Name Role Phone Mandy Dooley MD Primary Care Pro vider Encounters Date Type Department Care Team Description 02/27/2025 11:30 AM CDT Office Visit [facility] at [address] [address] Mandy Dooley MD SYLVIA (generalized anxiety disorder) (Primary Dx) 01/16/2025 9:15 AM BODY AND FRAME TECHNICIAN Office Visit [facility] at [address] [address] Mandy Dooley MD SYLVIA (generalized [...] complication Assessment & Plan (11/17/2024 9:32 AM BODY AND FRAME TECHNICIAN): controlled Continue albuterol as needed Assessment & Plan (01/29/2024 8:32 AM BODY AND FRAME TECHNICIAN): Stable Continue albuterol as needed Assessment & Plan (08/27/2023 10:12 AM CDT): Stable Continue albuterol as needed Environmental allergies 08/27/2023 Assessment & Plan (11/17/2024 9:32 AM BODY AND FRAME TECHNICIAN): Following with poultry feed supervisor Assessment & Plan (01/29/2024 8:32 AM BODY AND FRAME TECHNICIAN): Stable Following with poultry feed supervisor On kristine & nasonex Assessment & Plan (08/27/2023 10:18 AM CDT): Stable Following with poultry feed supervisor On kristine & nasonex Vaginal itching 07/07/2023 Assessment & Plan (07/07/2023 6:26 PM CDT): PO diflucan 150 mg once a week x 3 weeks Nystatin powder as prescribed Clean area clean, dry, avoid moisture accumulation Yeast culture PCOS (polycystic ovarian syndrome) 04/11/2021 Assessment & Plan (11/17/2024 9:45 AM BODY AND FRAME TECHNICIAN): Following with gynecology On wegovy Assessment & Plan (01/29/2024 8:39 AM BODY AND FRAME TECHNICIAN): Following with gynecology Continue metformin, adjust as needed to avoid diarrhea Assessment & Plan (08/27/2023 10:19 AM CDT): Following with gynecology On metformin, could decrease to 500mg twice a day if persistent side effects Assessment & Plan (04/11/2021 5:33 PM CDT): Following with gynecology, On clomid & metformin Annual physical exam 07/06/2020 Assessment & Plan (11/17/2024 9:44 AM BODY AND FRAME TECHNICIAN): Reviewed PMH & FH Phq reviewed Reviewed medications and supplements HCM: orders placed as needed Assessment & Plan (08/27/2023 10:02 AM CDT): Reviewed PMH & FH Phq reviewed Reviewed medications and supplements HCM: orders placed as needed Assessment & Plan (08/31/2022 4:31 PM CDT): Former smoker PAP: UTD, follows with gynecology at [facility] BP wnl Body mass index is 30.59 kg/m . Discussed diet and exercise Feels safe at home Discussed skin cancer prevention and screening Flu vaccine today, otherwise UTD Assessment & Plan (08/12/2021 10:53 AM CDT): Former smoker PAP: UTD, follows with gynecology at [facility] BP wnl PHQ Screening PHQ-2 Total [...] day Assessment & Plan (01/16/2025 9:33 AM BODY AND FRAME TECHNICIAN): GAD7: 16, uncontrolled Increase buspar to 15mg three times a day Assessment & Plan (11/17/2024 9:45 AM BODY AND FRAME TECHNICIAN): GAD7: 9, uncontrolled Increase buspar to 20mg twice a day Assessment & Plan (01/29/2024 8:30 AM BODY AND FRAME TECHNICIAN): Improved Continue buspar 15mg twice a day Assessment & Plan (08/27/2023 10:21 AM CDT): Uncontrolled Increase buspar to 15mg twice a day Continue regular exercise Assessment & Plan (12/06/2022 2:16 PM BODY AND FRAME TECHNICIAN): Uncontrolled with recent return to the office [...] on file Legal Sex Female 7:44 PM BODY AND FRAME TECHNICIAN Gender Identity Not on file Sexual Orientation [...] Plan of Treatment Not on file Insurance [employer] Care Teams Dulite Machine Bluer Relationship Specialty Start Date End Date Mandy Dooley MD PCP - General Family Medicine 07/02/20
--- OUTSIDE RECORDS SUMMARY | 2025-03-10 02:13 | XMS_ITS ---
Author Organization [facility] Address [address] [place] [address] Care Team Providers Care Oakes Machine Operator Name Role Phone Mandy Dooley Primary Care Provider Unavaila Mable Beckman Unavailable [phone] Blayne Garcia Unavailable [phone] REASON FOR VISIT SCIT - Traditional Schedule [...] Active Encounters Encounter Location Date Provider Diagnosis [facility] [address] [place] [address] 02/26/2025 Blayne Garcia Allergic rhinitis due to [...] Provider Name:Mable Scott , 03/16/2025 09:30:00 AM, [address] [place], [place] [address], [address], Provider Name:Blayne Garcia , 03/26/2025 04:40:00 PM, [address] [place], [place] [address], [address], Progress Notes * Eva DOHERTY: 7 (39 yo F)Acc No.[id number]:02/26/2025 SCIT-Aeroallergen Patient: Regine SNOI Provider: Esau Garcia MD :1985 A ge:39 Y S ex:Female Date:02/26/2025 Address:[facility] [address] [facility] Pcp:Mandy Dooley Subjective: * Chief Complaints: [...] Information: * Visit Code: * Procedure Codes: 13508 IMMUNOTHERAPY INJECTIONS. * Sign off status: Completed true * Provider: Esau Garcia MD Date: 0 02/26/2025 Generated for Jas lara/Lyle/Dioneitting on: 0 03/10/2025 02:13 AM CDT History and Physical Notes * [...]
--- OUTSIDE RECORDS SUMMARY | 2025-03-10 02:13 | XMS_ITS | Patient Health Record ---
Author Organization [facility] Address [address] [place] [address] Care Team Providers Care Plycor Operator Name Role Phone MiahChelseaMandy Primary Care Provider Unavaila Mable Beckman Unavailable [phone] Blayne Garcia Unavailable [phone] [facility], Provider Unavailable Unavailab le Allergies No [...] Status Risk Notes Problem Shortness of breath (411381227) Shortness of breath (R06.02) Active confirmed Problem Chronic allergic conjunctivitis (93887513) Other chronic allergic conjunctivitis (H10.45) Active confirmed Problem Allergic rhinitis caused by pollen (disorder) (65054175) Allergic rhinitis due to pollen (J30.1) Active confirmed Problem Allergic rhinitis (57757882) Other allergic rhinitis (J30.89) Active confirmed Problem Chronic rhinitis (88237692) Chronic rhinitis (J31.0) Active confirmed Problem Ingestion dermatitis caused by food (729893500) Dermatitis due to ingested food (L27.2) Active confirmed Problem Allergic rhinitis caused by pollen (disorder) (86731718) Allergic rhinitis due to pollen (J30.1) Active confirmed Problem Allergic rhinitis caused by animal hair and dander (333507736134051) Allergic rhinitis due to animal (cat) (dog) hair and dander (J30.81) Active confirmed Problem Allergic rhinitis (28800285) Other allergic rhinitis (J30.89) Active confirmed Problem Chronic allergic conjunctivitis (37502611) Other chronic allergic conjunctivitis (H10.45) Active confirmed Problem Eruption of skin (702416539) Rash and other nonspecific skin eruption (R21) Active confirmed Problem Chronic sinusitis (09305909) Other chronic sinusitis (J32.8) Active confirmed Vital Signs Respiratory Rate 17 /min 09/15/2024 Oximetry 98 % 09/15/2024 Blood pressure diastolic 72 mm Hg 09/15/2024 Height 64 in 09/15/2024 Blood pressure systolic 107 mm Hg 09/15/2024 Weight 155.2 lbs 09/15/2024 BMI 26.64 kg/m2 09/15/2024 Encounters Encounter Location Date Provider Diagnosis [address] [place] [address] 05/10/2024 Provider [facility] [address] [place] [address] 03/10/2024 Mable Tyler Allergic rhinitis du e to animal (cat) (dog) hair and dander J30.81 ; Allergic rhinitis due to pollen J30.1 ; Other allergic rhinitis J30.89 ; Other chronic allergic conjunctivitis H10.45 ; Shortness of breath R06.02 ; Other chronic sinusitis J32.8 ; Dermatitis due to ingested food L27.2 and Rash and other nonspecific skin eruption R21 [address] [place] [address] 04/10/2024 Blayne Garcia Allergic rhinitis du e to pollen J30.1 ; Other allergic rhinitis J30.89 ; Allergic rhinitis due to animal (cat) (dog) hair and dander J30.81 and Other chronic allergic conjunctivitis H10.[address] [place] [address] 05/12/2024 Blayne Garcia Allergic rhinitis du e to pollen J30.1 ; Other allergic rhinitis J30.89 ; Allergic rhinitis due to animal (cat) (dog) hair and dander J30.81 and Other chronic allergic conjunctivitis H10.[address] [place] [address] 06/09/2024 Blayne Garcia Allergic rhinitis du e to pollen J30.1 ; Other allergic rhinitis J30.89 ; Allergic rhinitis due to animal (cat) (dog) hair and dander J30.81 and Other chronic allergic conjunctivitis H10.[address] [place] [address] 07/14/2024 Blayne Garcia Allergic rhinitis du e to pollen J30.1 ; Other allergic rhinitis J30.89 ; Allergic rhinitis due to animal (cat) (dog) hair and dander J30.81 and Other chronic allergic conjunctivitis H10.45 [facility] [address] [place] [address] 07/21/2024 Blayne Garcia Allergic rhinitis du e to pollen J30.1 ; Other allergic rhinitis J30.89 ; Allergic rhinitis due to animal (cat) (dog) hair and dander J30.81 and Other chronic allergic conjunctivitis H10.45 [facility] [place] [address] [place] [address] 07/31/2024 Blayne Garcia Allergic rhinitis du e to pollen J30.1 ; Other allergic rhinitis J30.89 ; Allergic rhinitis due to animal (cat) (dog) hair and dander J30.81 and Other chronic allergic conjunctivitis H10.45 [facility] [place] [address] [place] [address] 08/25/2024 Blayne Garcia Allergic rhinitis du e to pollen J30.1 ; Other allergic rhinitis J30.89 ; Allergic rhinitis due to animal (cat) (dog) hair and dander J30.81 and Other chronic allergic conjunctivitis H10.45 [facility] [place] [address] [place] [address] 09/15/2024 Mable Scott Allergic rhinitis du e to animal (cat) (dog) hair and dander J30.81 ; Allergic rhinitis due to pollen J30.1 ; Other allergic rhinitis J30.89 ; Other chronic allergic conjunctivitis H10.45 ; Shortness of breath R06.02 ; Other chronic sinusitis J32.8 ; Dermatitis due to ingested food L27.2 and Rash and other nonspecific skin eruption R21 [facility] [place] [address] [place] [address] 10/27/2024 Blayne Garcia Allergic rhinitis du e to pollen J30.1 ; Other allergic rhinitis J30.89 ; Allergic rhinitis due to animal (cat) (dog) hair and dander J30.81 and Other chronic allergic conjunctivitis H10.45 [facility] [place] [address] [place] [address] 11/24/2024 Blayne Garcia Allergic rhinitis du e to pollen J30.1 ; Other allergic rhinitis J30.89 ; Allergic rhinitis due to animal (cat) (dog) hair and dander J30.81 and Other chronic allergic conjunctivitis H10.45 [facility] [address] [place] [address] 12/29/2024 Blayne Garcia Allergic rhinitis du e to pollen J30.1 ; Other allergic rhinitis J30.89 ; Allergic rhinitis due to animal (cat) (dog) hair and dander J30.81 and Other chronic allergic conjunctivitis H10.45 [facility] [address] [place] [address] 01/27/2025 Blayne Garcia Allergic rhinitis du e to pollen J30.1 ; Other allergic rhinitis J30.89 ; Allergic rhinitis due to animal (cat) (dog) hair and dander J30.81 and Other chronic allergic conjunctivitis H10.[address] [place] [address] 02/26/2025 Blayne Garcia Allergic rhinitis du e [...] 03/16/2025 09:30:00 AM, [address] [place], [address], Provider Name:Blayne Garcia , 03/26/2025 04:40:00 PM, [address] [place], [address], Insurance Providers Payer Name Payer Address Payer Phone Subscriber Number Group Number Insured Name Patient Relationship to Insured Coverage Start Date Coverage End Date [employer] POS II [address] [place] [address] [id number] Regine Busch Self - patient is the insured 5 Medical (General) History Medical History History ICD Code Depression, unspecified F32.A Surgical History Surgery Date(Month/Year) 10/13/2014 Appendectomy 08/02/2008 Hospitalization History Reason Date(Month/Year) See surgical history
[2025-03-10 06:49] LABS: Glucose Point of Care 84 mg/dl (65-105)
[2025-03-10] MEDS: ACETAMINOPHEN 500 MG TABLET 1000 MG PO ×3 (07:00→19:04)
[2025-03-10] MEDS: LACTATED RINGERS 1,000 ML 30 ML IV CONT ×2 (07:00→10:07)
[2025-03-10] MEDS: KETOROLAC 15 MG/ML VIAL (*BKC) IV PUSH (07:00)
[2025-03-10] MEDS: SCOPOLAMINE 1 MG PATCH 1 PATCH TRANSDERM (07:00)
--- NOTE | 2025-03-10 07:05 | WPDANESEPPF ---
Anes - Initial Pre Proc Eval Procedure: Operation Date: 03/10/25 07:30 Proposed Procedures p Robotic Assisted Hysterectomy with Bilateral Salpingectomy - Jordan Prabhakar MD Date/Time: 03/10/25 07:05 Surgeon: Jordan Prabhakar MD Pre Op Diagnosis: pelvic congestion syndrome Patient Data Age: 39 Gender: F Height: 1.63 m Weight: 63.2 kg Allergies Allergy/AdvReac Type Severity Reaction Status Date / Time No Known Allergies Allergy Unverified 03/02/25 15:14 Home Medications ?Medication ?Instructions ?Recorded ?Confirmed ?Type buspirone 15 mg tablet 15 mg PO TID 03/02/25 03/02/25 History fexofenadine 180 mg tablet 180 mg PO DAILY 03/02/25 03/02/25 History (Aurea Allergy) mometasone 50 mcg/actuation nasal 2 spray intranasal DAILY 03/02/25 03/02/25 History spray (Allergy Nasal (mometasone)) multivitamin (Daily Multi-Vitamin 1 tablet PO DAILY 03/02/25 03/02/25 History tablet) semaglutide 0.25 mg or 0.5 mg (2 0.5 mg subcut WEEKLY 03/02/25 03/02/25 History mg/3 mL) subcutaneous pen injector (Ozempic) Laboratory Tests 03/10/25 06:47 POC Capillary Glucose 84 mg/dl (65-105) Patient hx anesthesia problems: none Family hx anesthesia problems: none Results Review: All pre-operative results and documents have been reviewed as part of the pre-operative evaluation. [facility] Social History Social History Smoking status: Never smoker Alcohol intake: current Living arrangements: with family Spiritual care concerns: No Anes - Eval Final PreProcedure Day of Procedure 03/10/25 07:05 Patient weight: normal Heart: regular rate and rhythm Lungs: clear to auscultation Airway: Mallampati scale class II Neurological: alert and oriented Last oral intake: >/= 8 hours ASA classification: II Emergent: no Anesthetic plan: proceed Anesthesia type and monitoring: general ETT and standard monitoring Results Review: All pre-operative results and documents have been reviewed as part of the pre-operative evaluation. Informed Consent: The patient's anesthetic plan and its attendant risks and benefits were discussed with the patient/family/POA. Questions were solicited and answers provided to the satisfaction of the patient/family/POA.
--- NOTE | 2025-03-10 07:18 | WPDHPUPDATE1 ---
History and Physical Update Update Date/Time: 03/10/25 07:18 History and Physical has been reviewed, including an updated exam of the patient. There are NO changes in the patient's condition. Risks, benefits, and alternatives have been discussed and questions answered. Patient agrees to proceed with procedure.
[2025-03-10] MEDS: ceFAZolin 2 GM/D5W 50 ML 2 GM/50 ML BAG IVPB (07:30)
[2025-03-10 07:47] LABS: BEDSIDEPREGUCG Negative (Negative)
--- NOTE | 2025-03-10 09:30 | W.PM.PROC2 ---
Procedure Note - Detailed Date of Procedure 03/10/25 Pre-op Diagnosis pelvic congestion syndrome Post-op Diagnosis Same Procedure Performed Robot assisted Total hysterectomy with bilateral salpingectomy. Surgeon Jordan Prabhakar MD Anesthesia General Indications heavy vaginal bleeding, pelvic pain Findings Mildly enlarged fibroid uterus, large dilated veins in the parametrium and lateral aspects of the lower uterine segment. Normal-appearing ovaries. Small endometriosis implants in the posterior cul-de-sac Description of Procedure This patient was taken to the operating room. She was prepped and draped in the dorsal lithotomy position after induction of general anesthesia. The uterine manipulator and Kae cup were placed. This was done with a speculum and tenaculum. The speculum was placed. The cervix was grasped with a tenaculum. The stay sutures were placed at 3 and 9:00 a.m.. The stay sutures of 0 Vicryl were tied to the appropriately Size scope after it was slipped around the cervix.. The tip of the GONZALO manipulator was placed in the intrauterine cavity. The cup was slid into place around the cervix and into the fornices. It was locked into place. The sutures were then wrapped around the handle and tied under tension. A 8 mm skin incision was made in the left upper quadrant the abdomen. a 5 mm Visiport trocar was inserted into abdominal cavity and pneumoperitoneum was achieved. A 8 mm supraumbilical incision was made and a 8 mm trocar was inserted into the intrauterine cavity under direct visualization of the scope. an 8 mm incision was made in the right upper quadrant of the abdomen and an 8 mm robotic trocar was placed the inter uterine cavity under direct visualization the scope. An 11 mm trocar was inserted in the right upper quadrant of the abdomen rectal is a cystoscope after an incision was made there as well. The robot was docked. Electronic Orientation of the robot was performed. Bilateral ureteral lysis was performed. This was done from the pelvic brim down to the uterine artery. This was done with careful dissection using sharp and blunt dissection. The fallopian tubes were removed bilaterally. The mesosalpinx around the fallopian tubes were cauterized transected with LigaSure cautery. This was done in a bilateral fashion from the ovary to the uterine cornua. The fallopian tube was transected at the uterine cornu and amputated. The tube was taken out the left lower quadrant trocar site. In a stepwise fashion along the lateral aspects of the uterus the round ligament and broad ligaments were cauterized transected down to the level of the uterine arteries. A bladder flap was created in the bladder was moved distally to the end of the cervix and over the Kae cup. The bilateral uterine arteries were cauterized and transected. Colpotomy was then performed. In a circumferential fashion the vagina was transected using unipolar cautery. The incision was made down on the Kae cup. The uterus and cervix were taken out through the vagina. A pneumo occluder was placed in the vagina. The vaginal cuff was closed with a 0 V lock suture in a running fashion. The pelvis was irrigated with copious amounts antibiotic irrigation. The ureters were again examined and found to be intact and flowing freely under the uterine arteries into the bladder. The bladder was intact. It was examined directly. Cystoscopy was performed after administration of methylene blue. The cystoscope was inserted. Bladder was distended with fluid. The ureteric meatus was observed bilaterally. Blue fluid was seen to egress bilaterally. The bladder was drained and the cystoscope was withdrawn. The vagina was irrigated with Betadine solution after removal of the Pneumo occluder. the trocars were removed after the robot was undocked. The skin was closed with subacute or Dermabond. The patient was taken to recovery room. She was stable condition. Sponge lap and needle counts were correct x2. Estimated Blood Loss 125 Urine Output 800 Drains Yes Packing No Pathology Yes Complications No immediate complications Condition Stable Disposition Floor
[2025-03-10 10:11] LABS: Glucose Point of Care 126 mg/dl (65-105)
[2025-03-10] MEDS: fentaNYL CITRATE INJ (*CRX) 100 MCG/2 ML VIAL 25 MCG IV PUSH ×4 (10:21→10:39)
--- NOTE | 2025-03-10 11:10 | PC.NURSE ---
This patient, Regine Busch, was received from PACU on 03/10/25 at 1110. Patient/family oriented to unit policies and routines
[2025-03-10] MEDS: ONDANSETRON INJ 4 MG/2 ML VIAL IV PUSH (11:37)
[2025-03-10] MEDS: KETOROLAC 30 MG/ML VIAL (*BKC) IV PUSH ×2 (12:48→19:05)
[2025-03-10] MEDS: SIMETHICONE 80 MG TAB.CHEW PO ×2 (12:48→16:02)
[2025-03-10] MEDS: oxyCODONE HCL (*CRX) 5 MG TAB IR PO ×2 (16:02→17:30)
[2025-03-10] MEDS: busPIRone HCL 5 MG TABLET 15 MG PO ×2 (17:29→22:30)
[2025-03-10] MEDS: DOCUSATE SODIUM 100 MG CAPSULE PO (17:30)
[2025-03-11] MEDS: ACETAMINOPHEN 500 MG TABLET 1000 MG PO ×2 (00:29→06:43)
[2025-03-11] MEDS: KETOROLAC 30 MG/ML VIAL (*BKC) IV PUSH (00:30)
[2025-03-11 00:43] VITALS: BP 101/68; PULSE 70; RESP 18; TEMP 36.6; O2SAT 99
[2025-03-11 04:00] VITALS: BP 92/54; PULSE 84; RESP 18; TEMP 36.7; O2SAT 99
[2025-03-11] MEDS: IBUPROFEN 600 MG TABLET PO (06:43)
[2025-03-11 07:16] VITALS: BP 96/62; PULSE 78; RESP 20; TEMP 36.8; O2SAT 100
[2025-03-11] MEDS: DOCUSATE SODIUM 100 MG CAPSULE PO (08:47)
[2025-03-11] MEDS: SIMETHICONE 80 MG TAB.CHEW PO (08:47)
[2025-03-11] MEDS: busPIRone HCL 5 MG TABLET 15 MG PO (08:47)
== END 2025-03-11 10:02 | disposition home or self-care (01) ==
LOC: ANHSURGERY 06:03 → ANHOB2 11:04
PROVIDERS: PCP Hospitalist; Visit Provider Obstetrics & Gynecology
PROC: (CPT 58571; principal; 2025-03-10 07:30)
DX: N94.89 Other specified conditions associated with female genital organs and menstrual cycle (principal); N80.329 Endometriosis of the posterior cul-de-sac, unspecified depth; Z79.85 Long-term (current) use of injectable non-insulin antidiabetic drugs
CPT/HCPCS: 58571; S2900; 82948; 88307; 99199; A9270; J0690; J1100; J1171; J1885; J2003; J2250; J2405; J2704; J3010; J7030; J7120; Q9968